=== PATIENT | female | born 1955 | race Caucasian/White ===

== ENCOUNTER 2018-01-20 13:17 | Observation (INO) | payer MEDICARE ==
[~2018-01-20] VITALS: Ht 162.6 cm; Wt 70.0 kg
[2018-01-20 13:27] VITALS: BP 169/74; PULSE 81; RESP 16; TEMP 97.3; O2SAT 98
[2018-01-20] MEDS ORDERED: SODIUM CHLORIDE 0.9% FLUSH 10 ML FLUSH IVF PRN (13:45)
--- NOTE | 2018-01-20 13:50 | PD ---
HPI Chief Complaint: Chest Pain Time Seen by Provider: 13:41 Travel History International Travel<30 days: No Contact w/Intl Traveler<30days: No Traveled to known affect area: No History of Present Illness HPI 62-year-old female patient with history of multiple sclerosis, hypertension, previous MO, presents to the ER today for 5 out of 10 substernal chest discomfort which she states feels like a pressure. She states it does not radiate anywhere. She denies any shortness of breath or nausea. She states that it feels similar to last time she had cardiac related chest pain. She had taken her own nitroglycerin and states that he felt a little bit better. She denies any cough, fevers, or any other symptoms. Modifying Factors: None Associated Signs & Symptoms: Chest discomfort Risk Factors: Previous MO PFSH Past Medical History Cardiovascular Problems: Yes Social History Tobacco Use: No Allergies-Medications (Allergen,Severity, Reaction): Coded Allergies: latex (Unverified Allergy, Unknown, 05/30/17) Reported Meds & Prescriptions Reported Meds & Active Scripts Active Review of Systems Except as stated in HPI: all other systems reviewed are Neg Physical Exam Narrative GENERAL: Well-developed elderly female patient currently in mild distress. Awake and oriented 3. SKIN: Focused skin assessment warm/dry. HEAD: Atraumatic. Normocephalic. EYES: Pupils equal and round. No scleral icterus. No injection or drainage. ENT: No nasal bleeding or discharge. Mucous membranes pink and moist. NECK: Trachea midline. No JVD. Supple. CARDIOVASCULAR: Regular rate and rhythm. No murmur appreciated. Pulses are present and equal bilaterally. RESPIRATORY: No accessory muscle use. Clear to auscultation. Breath sounds equal bilaterally. GASTROINTESTINAL: Abdomen soft, non-tender, nondistended. Hepatic and splenic margins not palpable. MUSCULOSKELETAL: No obvious deformities. No clubbing. No cyanosis. No edema. NEUROLOGICAL: Awake and alert. No obvious cranial nerve deficits. Motor grossly within normal limits. Normal speech. PSYCHIATRIC: Appropriate mood and affect; insight and judgment normal. Data Data Last Documented VS Vital Signs Date Time Temp Pulse Resp B/P (MAP) Pulse Ox O2 Delivery O2 Flow Rate FiO2 01/20/18 16:30 76 16 133/70 (91) 96 Room Air 01/20/18 14:00 2.00 01/20/18 13:27 97.3 Orders Orders Electrocardiogram (01/20/18 13:41) Ckmb (Isoenzyme) Profile (01/20/18 13:41) Complete Blood Count With Diff (01/20/18 13:41) Comprehensive Metabolic Panel (01/20/18 13:41) Magnesium (Mg) (01/20/18 13:41) Prothrombin Time / Inr (Pt) (01/20/18 13:41) Act Partial Throm Time (Ptt) (01/20/18 13:41) Troponin I (01/20/18 13:41) Ecg Monitoring (01/20/18 13:41) Bilateral Bp Monitoring (01/20/18 13:41) Iv Access Insert/Monitor (01/20/18 13:41) Oximetry (01/20/18 13:41) Oxygen Administration (01/20/18 13:41) Sodium Chloride 0.9% Flush (Ns Flush) (01/20/18 13:45) Chest, Pa & Lat (01/20/18 13:41) Aspirin (Aspirin) (01/20/18 14:00) Nitroglycerin 2% Oint (Nitroglycerin 2% (01/20/18 14:00) Ct Thorax/ Chest W Iv Contrast (01/20/18 15:31) Iohexol 350 Inj (Omnipaque 350 Inj) (01/20/18 18:01) Admit Order (Ed Use Only) (01/20/18 18:41) Activity Bed Rest With Brp (01/20/18 18:41) Vital Signs (Adult) Q4H (01/20/18 18:41) Cardiac Rhythm .As Directed (01/20/18 18:41) Notify Dr: Other .PRN (01/20/18 18:41) Notify Dr. Parameters (01/20/18 18:41) Labs Laboratory Tests Test 01/20/18 13:35 01/20/18 13:45 Blood Urea Nitrogen 14 MG/DL Creatinine 0.72 MG/DL Random Glucose 90 MG/DL Total Protein 7.2 GM/DL Albumin 3.5 GM/DL Calcium Level 8.8 MG/DL Magnesium Level 2.1 MG/DL Alkaline Phosphatase 119 U/L Aspartate Amino Transf (AST/SGOT) 19 U/L Alanine Aminotransferase (ALT/SGPT) 16 U/L Total Bilirubin 0.4 MG/DL Sodium Level 139 MEQ/L Potassium Level 3.2 MEQ/L Chloride Level 103 MEQ/L Carbon Dioxide Level 27.0 MEQ/L Anion Gap 9 MEQ/L Estimat Glomerular Filtration Rate 82 ML/MIN Total Creatine Kinase 80 U/L Troponin I LESS THAN 0.02 NG/ML White Blood Count 6.2 TH/MM3 Red Blood Count 3.95 MIL/MM3 Hemoglobin 12.1 GM/DL Hematocrit 36.1 % Mean Corpuscular Volume 91.4 FL Mean Corpuscular Hemoglobin 30.7 PG Mean Corpuscular Hemoglobin Concent 33.6 % Red Cell Distribution Width 13.7 % Platelet Count 311 TH/MM3 Mean Platelet Volume 7.7 FL Neutrophils (%) (Auto) 47.5 % Lymphocytes (%) (Auto) 24.6 % Monocytes (%) (Auto) 11.9 % Eosinophils (%) (Auto) 14.9 % Basophils (%) (Auto) 1.1 % Neutrophils # (Auto) 3.0 TH/MM3 Lymphocytes # (Auto) 1.5 TH/MM3 Monocytes # (Auto) 0.7 TH/MM3 Eosinophils # (Auto) 0.9 TH/MM3 Basophils # (Auto) 0.1 TH/MM3 CBC Comment DIFF FINAL Differential Comment Prothrombin Time 10.7 SEC Prothromb Time International Ratio 1.1 RATIO Activated Partial Thromboplast Time 25.5 SEC MDM Medical Decision Making Medical Screen Exam Complete: Yes Emergency Medical Condition: Yes Medical Record Reviewed: Yes Interpretation(s) EKG shows NSR, no ST elevation or depression, and no arrhythmias. No significant T-wave inversions. Laboratory Tests Test 01/20/18 13:35 01/20/18 13:45 Alkaline Phosphatase 119 U/L (45-117) Potassium Level 3.2 MEQ/L (3.5-5.1) Estimat Glomerular Filtration Rate 82 ML/MIN (>89) Troponin I LESS THAN 0.02 NG/ML Red Blood Count 3.95 MIL/MM3 (4.00-5.30) Monocytes (%) (Auto) 11.9 % (0.0-8.0) Eosinophils (%) (Auto) 14.9 % (0.0-4.0) Eosinophils # (Auto) 0.9 TH/MM3 (0-0.4) Last 24 hours Impressions Chest X-Ray 01/20/18 1341 Signed Impressions: Service Date/Time: Saturday, January 20, 2018 14:11 - CONCLUSION: Right middle lobe consolidating airspace disease versus mass density. Bora Cohen MD Differential Diagnosis Chest pains: ACS versus unstable angina versus dysrhythmias versus anxiety attack versus muscular skeletal pain Narrative Course EKG did not show any signs of acute ST changes. Chest x-ray initially showed right middle lobe concerning for possible mass versus consolidation, CAT scan ordered for further evaluation, shows that his fat pad, no underlying consolidation. Cardiac enzymes are negative. Aspirin nitroglycerin was given in the ER. At this point, my plan would be to admit her for further evaluation of her chest pains. Diagnosis Primary Impression: Chest pain Admitting Information Admitting Physician Requests: Admit Harry Massey MD Jan 20, 2018 13:50
[2018-01-20 14:00] VITALS: BP 174/83; PULSE 76; RESP 16; O2SAT 96
[2018-01-20] MEDS ORDERED: NITROGLYCERIN 2% OINT 1 GM PACKET TOPICAL ONE (14:00)
[2018-01-20] MEDS ORDERED: ASPIRIN 325 MG TAB PO ONE (14:00)
[2018-01-20 14:04] LABS: BASOPHIL # 0.1 TH/MM3 (0-0.2); BASOPHIL % 1.1 % (0.0-2.0); EOSINOPHIL # 0.9 TH/MM3 (0-0.4); EOSINOPHIL % 14.9 % (0.0-4.0); HEMATOCRIT 36.1 % (35.0-46.0); HEMOGLOBIN 12.1 GM/DL (11.6-15.3); LYMPH % 24.6 % (9.0-44.0); LYMPHOCYTE # 1.5 TH/MM3 (1.0-4.8); MEAN CELL VOLUME 91.4 FL (80.0-100.0); MEAN CORPUSCULAR HEMOGLOBIN 30.7 PG (27.0-34.0); MEAN CORPUSCULAR HGB CONC 33.6 % (32.0-36.0); MEAN PLATELET VOLUME 7.7 FL (7.0-11.0); MONO % 11.9 % (0.0-8.0); MONOCYTE # 0.7 TH/MM3 (0-0.9); NEUT % 47.5 % (16.0-70.0); PLATELET COUNT 311 TH/MM3 (150-450); RED BLOOD COUNT 3.95 MIL/MM3 (4.00-5.30); RED CELL DISTRIBUTION WIDTH 13.7 % (11.6-17.2); WHITE BLOOD COUNT 6.2 TH/MM3 (4.0-11.0)
[2018-01-20 14:11] LABS: INTERNATIONAL NORMALIZED RATIO 1.1 RATIO; PROTHROMBIN TIME - PATIENT 10.7 SEC (9.8-11.6)
[2018-01-20 14:26] LABS: ALBUMIN 3.5 GM/DL (3.4-5.0); ALT (GPT) 16 U/L (10-53); AST (GOT) 19 U/L (15-37); BLOOD UREA NITROGEN 14 MG/DL (7-18); CALCIUM 8.8 MG/DL (8.5-10.1); CHLORIDE 103 MEQ/L (98-107); CREATININE 0.72 MG/DL (0.50-1.00); GLOMERULAR FILTRATION RATE 82 ML/MIN (>89); GLUCOSE,RANDOM 90 MG/DL (74-106); MAGNESIUM 2.1 MG/DL (1.5-2.5); SODIUM (NA) 139 MEQ/L (136-145)
[2018-01-20 14:31] VITALS: BP_SYST 174; BP_SYST 175; BP_DIAS 83; BP_DIAS 84; PULSE 84; RESP 16; O2SAT 97
[2018-01-20 14:31] LABS: ALKALINE PHOSPHATASE 119 U/L (45-117); TOTAL BILIRUBIN ADULT 0.4 MG/DL (0.2-1.0); TOTAL PROTEIN 7.2 GM/DL (6.4-8.2); TROPONIN I LESS THAN 0.02 NG/ML (0.02-0.05)
[2018-01-20 15:00] VITALS: BP 175/84; PULSE 84; RESP 16; O2SAT 96
--- NOTE | 2018-01-20 15:25 | RADRPT ---
EXAM DATE/TIME: 01/20/2018 14:11 [facility] COMPARISON: No previous studies available for comparison. INDICATIONS : Chest pain. MEDICAL HISTORY : None. SURGICAL HISTORY : None. ENCOUNTER: Initial ACUITY: 1 day PAIN SCORE: 3/10 LOCATION: Bilateral chest FINDINGS: Consolidating airspace disease versus mass densities identified in the right middle lobe. Left lung is clear Heart is normal in size. Osseous structures are intact. CONCLUSION: Right middle lobe consolidating airspace disease versus mass density. Bora Cohen MD on January 20, 2018 at 15:22 Board Certified Radiologist. This report was verified electronically.
[2018-01-20 16:30] VITALS: BP 133/70; PULSE 76; RESP 16; O2SAT 96
[2018-01-20] MEDS ORDERED: IOHEXOL 350 MG/ML 10 ML VIAL (for RAD DIAG) IVCONTRAST ONE (18:01)
--- NOTE | 2018-01-20 18:24 | RADRPT ---
EXAM DATE/TIME: 01/20/2018 17:55 [facility] COMPARISON: CHEST PA & LAT, January 20, 2018, 14:11. INDICATIONS : Abnormal chest xray; evaluate for mass right side. IV CONTRAST: 100 cc Omnipaque 350 (iohexol) IV RADIATION DOSE: 5.75 CTDIvol (mGy) MEDICAL HISTORY : Cardiovascular disease. Hypertension. Multiple sclerosis.Stroke. SURGICAL HISTORY : Cholecystectomy. ENCOUNTER: Initial ACUITY: 1 day PAIN SCALE: 4/10 LOCATION: Right chest TECHNIQUE: Volumetric scanning of the chest was performed. Using automated exposure control and adjustment of t he mA and/or kV according to patient size, radiation dose was kept as low as reasonably achievable to obtain optimal diagnostic quality images. DICOM format image data is available electronically for review and comparison. Follow-up recommendations for detected pulmonary nodules are based at a minimum on nodule size and pa tient risk factors according to Fleischner Society Guidelines. FINDINGS: LUNGS: There are 2 adjacent 3 mm nodule seen in the right middle lobe. PLEURA: There is no pleural thickening or pleural effusion. MEDIASTINUM: There is a prominent right epicardial fat pad accounting for the density seen on the recent chest x-r ay. This is a normal finding. AXILLAE: Within normal limits. No lymphadenopathy. SKELETAL: Within normal limits for patient age. MISCELLANEOUS: There is a prominent levocurvature of the thoracolumbar region. There is a spinal catheter in place w ith tip directed to the T11 level. Old right rib fractures are seen. CONCLUSION: 1. Large right epicardial fat pad accounting for the density on the chest x-ray. 2. 2 small adjacent 3 mm nodules in the right middle lobe. The recommendations for low risk patients, no follow-up needed. In high risk patients, follow-up CT at 12 months; if unchanged, no further fol low-up. Karthikeyan Shook MD on January 20, 2018 at 18:16 Board Certified Radiologist. This report was verified electronically.
[2018-01-20] MEDS ORDERED: SODIUM CHLORIDE 0.9% FLUSH 10 ML FLUSH IV FLUSH PRN (18:45)
[2018-01-20] MEDS ORDERED: POTASSIUM CHLORIDE 25 MEQ EFFERVESCENT TAB PO ONE (18:45)
[2018-01-20] MEDS ORDERED: INFUSION (18:51)
[2018-01-20] MEDS ORDERED: OMEP20TA93 PO (18:51)
[2018-01-20] MEDS ORDERED: FOLI800T PO (18:51)
[2018-01-20] MEDS ORDERED: SERT25TA83 PO (18:51)
[2018-01-20] MEDS ORDERED: PRED5TAB PO (18:51)
[2018-01-20] MEDS ORDERED: TOPI200T7 PO (18:51)
[2018-01-20] MEDS ORDERED: LISI10TA3 PO (18:51)
[2018-01-20] MEDS ORDERED: AK-T0.3S EACH EYE (18:51)
[2018-01-20] MEDS ORDERED: CARB200T (18:51)
[2018-01-20] MEDS ORDERED: METH0.35 SQ (18:51)
[2018-01-20] MEDS: SODIUM CHLORIDE 0.9% FLUSH 10 ML FLUSH IV FLUSH SCH (19:38)
[2018-01-20 20:43] LABS: TROPONIN I LESS THAN 0.02 NG/ML (0.02-0.05)
[2018-01-20 23:02] LABS: TROPONIN I LESS THAN 0.02 NG/ML (0.02-0.05)
[2018-01-20 23:47] VITALS: BP 116/59; PULSE 64; RESP 16; TEMP 96.3; O2SAT 95
[2018-01-21] MEDS: NITROGLYCERIN 2% OINT 1 GM PACKET TOP SCH ×3 (00:54→12:00)
[2018-01-21 04:00] VITALS: BP 104/57; PULSE 65; RESP 16; TEMP 97; O2SAT 95
[2018-01-21] MEDS ORDERED: ONDANSETRON HCL 4 MG/2 ML VIAL IV PUSH PRN (07:45)
[2018-01-21] MEDS ORDERED: ACETAMINOPHEN 500 MG CPLT PO PRN (07:45)
[2018-01-21] MEDS ORDERED: NITROGLYCERIN 0.4 MG SL 25 TABS/BTL SL PRN (07:45)
[2018-01-21 08:00] VITALS: BP 105/57; PULSE 59; RESP 16; TEMP 97.3; O2SAT 94
[2018-01-21 08:21] VITALS: PULSE 54
[2018-01-21] MEDS ORDERED: ASPIRIN 325 MG TAB PO SCH ×2 (09:00)
--- NOTE | 2018-01-21 09:26 | HHI.HP ---
[facility] Primary Care Physician Omid Samano MD Chief Complaint Chest pain History of Present Illness 62-year-old female with history of MS, hypertension, GERD, rheumatoid arthritis , and ND presents to the emergency room for further evaluation of chest pain. Onset yesterday 12 PM while working in garden. Location substernal area. Characterized as a rock sitting on chest with accompanying symptoms of acid reflux, headache, nausea, dyspnea, and a sour taste in her mouth. Denying vomiting or diaphoresis. No radiation. No known precipitating or relieving factors. Duration 2-3 hours. Continue to work in garden, followed by taking a shower she had plans to meet her daughters for lunch. Took Prilosec on way to restaurant. While at restaurant discomfort continued therefore she and her daughters left restaurant prior to ordering and came to ER. Endorses similar pain in the past, although not as severe, in August 2017. Reports being on a cruise ship at the time. Apparently once at [facility], flown to [place]. Told by cruise personnel, air flight medical team, and physicians in [place] she had a heart attack. Denies having undergone cardiac catheterization while in [place], remembers being told she had "broken heart syndrome" and was in the ICU for a few days. Sounds as though she signed herself out of [facility] at some point, following up with her cyanide pot hardener in [facility]. Endorses cardiac catheterization approximately 3 days later, in [place], [place]. Reported to be normal "but extremely shannon." Review of Systems General: No fatigue,weakness, fever, chills, recent illness, or change in appetite. Has been in her general state of health. Endorses "aches and pains" due to multiple medical problems, although stable and unchanged. HEENT: Headache has resolved. No vision changes, no nasal congestion or drainage, no dysphasia CV: As stated above. No current chest pain or pressure. RESP: SOB resolved, no cough, wheeze, or hemoptysis. GI: Nausea has resolved. No vomiting, bowel changes, diarrhea, constipation, pain, distention, melena, or blood in the stool. History of GERD, normally does not suffer from acid reflux symptoms, taking omeprazole daily. : No dysuria, urgency, frequency EXT: No lower leg edema, no paraesthesias. MS: No discomfort, injury, trauma, or change in ROM NEURO: No change in memory, difficulty with balance, LOC, motor/sensory deficits PSYCH: No anxiety, depression. Endorses situational stress. SKIN: No rashes, no concerning lesions Past Family Social History Allergies: Coded Allergies: latex (Unverified Allergy, Unknown, 05/30/17) Past Medical History MS, hypertension, GERD, rheumatoid arthritis, decreased ejection fraction ( reporting last ECHO 45%) Reported Medications Reported Meds & Active Scripts Active Reported-(please note patient unsure of daily medications and reports her personal medication list is not updated on her phone) Topiramate 200 Mg Tab 100 Mg PO BID Tobramycin Opth Drops 0.3 % Soln 1 Drop EACH EYE Q4H Sertraline (Sertraline HCl) 25 Mg Tab 25 Mg PO DAILY Prednisone 5 Mg Tab 5 Mg PO BID Omeprazole 20 Mg Tab 20 Mg PO DAILY Rasuvo (Methotrexate (Antirheumatic)) 20 Mg/0.4 Ml Inj Lisinopril 10 Mg Tab 10 Mg PO DAILY [infusion] Folic Acid 0.8 Mg Tab 1 Mg PO DAILY Carbamazepine 200 Mg Tab 200 Mg BID Active Ordered Medications Current Medications Medications (Trade) Dose Ordered Sig/Yanet Route Start Time Stop Time Status Last Admin (NS Flush) 2 ml UNSCH PRN IV FLUSH 01/20/18 18:45 (NS Flush) 2 ml BID IV FLUSH 01/20/18 21:00 01/20/18 19:38 (Nitroglycerin 2% Oint) 1 inch Q6HR TOP 01/21/18 00:00 01/21/18 06:07 (Tylenol) 500 mg Q4H PRN PO 01/21/18 07:45 (Zofran Inj) 4 mg Q6H PRN IV PUSH 01/21/18 07:45 (Nitrostat Sl) 0.4 mg Q5M PRN SL 01/21/18 07:45 (Aspirin) 325 mg DAILY PO 01/21/18 09:00 Family History Noncontributory for early onset cardiovascular disease. Social History Known hypertension, questionable coronary artery disease. No known hyperlipidemia or diabetes. Lifelong non-smoker. Rare alcohol use. . Lives with her daughter. Disabled. Past cardiac testing Cardiac catheterization August [address] Anderson. Reported to be "normal" without requiring any intervention. Since August 2017 she has completed at least 2 echocardiogram. Reports first echo EF 30% and repeat echo EF 45%. Unclear if she had ND verses elevated troponin's while in [facility]. Physical Exam Vital Signs Vital Signs Date Time Temp Pulse Resp B/P (MAP) Pulse Ox O2 Delivery O2 Flow Rate FiO2 01/21/18 08:00 94 01/21/18 08:00 97.3 59 16 105/57 (73) 94 01/21/18 04:00 97.0 65 16 104/57 (73) 95 01/20/18 23:47 96.3 64 16 116/59 (78) 95 01/20/18 16:30 76 16 133/70 (91) 96 Room Air 01/20/18 15:00 84 16 175/84 (114) 96 Room Air 01/20/18 14:31 84 16 175/84 (114) 97 Room Air 174/83 (113) 01/20/18 14:00 99 Nasal Cannula 2.00 01/20/18 14:00 76 16 174/83 (113) 96 Room Air 01/20/18 14:00 78 18 98 01/20/18 13:27 97.3 81 16 169/74 (105) 98 Physical Exam GENERAL: Alert WN, WD, NAD, pleasant, female HEAD: NC, AT EYES: Sclera clear, conjunctiva without injection, pupils equal and round ENT: Mucous membranes pink and moist NECK: Supple, no masses, trachea midline CV: RRR, without murmur, rub, gallop, no JVD, S1-S2 no S3-S4. No carotid or femoral bruits. RESP: Clear lungs throughout bilateral, no crackles, wheeze, rhonchi, symmetrical chest rise, nonlabored, able to speak in full sentences ABD: Soft, NT, ND, no masses, positive bowel tones EXT: Pulses +2x44, no dependent edema, bilateral extremities varicosities MS: Normal tone -4 extremities, no obvious deformities, full range of motion NEURO: CN II through CN XII grossly intact, motor strength 5/5 PSYCH: A+O -3, pleasant affect, appropriate speech, mood, insight and judgment SKIN: Normal turgor, normal texture, no lesions, no rashes, brisk cap refill, even hair distribution Laboratory Laboratory Tests Test 01/20/18 13:35 01/20/18 13:45 01/20/18 19:36 01/20/18 22:10 Blood Urea Nitrogen 14 Creatinine 0.72 Random Glucose 90 Total Protein 7.2 Albumin 3.5 Calcium Level 8.8 Magnesium Level 2.1 Alkaline Phosphatase 119 Aspartate Amino Transf (AST/SGOT) 19 Alanine Aminotransferase (ALT/SGPT) 16 Total Bilirubin 0.4 Sodium Level 139 Potassium Level 3.2 Chloride Level 103 Carbon Dioxide Level 27.0 Anion Gap 9 Estimat Glomerular Filtration Rate 82 Total Creatine Kinase 80 65 59 Troponin I LESS THAN 0.02 LESS THAN 0.02 LESS THAN 0.02 White Blood Count 6.2 Red Blood Count 3.95 Hemoglobin 12.1 Hematocrit 36.1 Mean Corpuscular Volume 91.4 Mean Corpuscular Hemoglobin 30.7 Mean Corpuscular Hemoglobin Concent 33.6 Red Cell Distribution Width 13.7 Platelet Count 311 Mean Platelet Volume 7.7 Neutrophils (%) (Auto) 47.5 Lymphocytes (%) (Auto) 24.6 Monocytes (%) (Auto) 11.9 Eosinophils (%) (Auto) 14.9 Basophils (%) (Auto) 1.1 Neutrophils # (Auto) 3.0 Lymphocytes # (Auto) 1.5 Monocytes # (Auto) 0.7 Eosinophils # (Auto) 0.9 Basophils # (Auto) 0.1 CBC Comment DIFF FINAL Differential Comment Prothrombin Time 10.7 Prothromb Time International Ratio 1.1 Activated Partial Thromboplast Time 25.5 Result Diagram: 01/20/18 1345 01/20/18 1335 Imaging Last [address] 01/20/18 1531 Signed Impressions: Service Date/Time: Saturday, January 20, 2018 17:55 - CONCLUSION: 1. Large right epicardial fat pad accounting for the density on the chest x-ray. 2. 2 small adjacent 3 mm nodules in the right middle lobe. The recommendations for low risk patients, no follow-up needed. In high risk patients, follow-up CT at 12 months; if unchanged, no further follow-up. Karthikeyan Shook MD Chest X-Ray 01/20/18 1341 Signed Impressions: Service Date/Time: Saturday, January 20, 2018 14:11 - CONCLUSION: Right middle lobe consolidating airspace disease versus mass density. Bora Cohen MD Course EKG Normal sinus rhythm, no ST changes Caprini VTE Risk Assessment Caprini VTE Risk Assessment: Mod/High Risk (score >= 2) Caprini Risk Assessment Model Point Value = 1 Point Value = 2 Point Value = 3 Point Value = 5 Age 41-60 Minor surgery BMI > 25 kg/m2 Swollen legs Varicose veins or History of unexplained or recurrent spontaneous Oral contraceptives or hormone replacement Sepsis (< 1 month) Serious lung disease, including pneumonia (< 1 month) Abnormal pulmonary function Acute myocardial infarction Congestive heart failure (< 1 month) History of inflammatory bowel disease Medical patient at bed rest Age 61-74 Arthroscopic surgery Major open surgery (> 45 min) Laparoscopic surgery (> 45 min) Malignancy Confined to bed (> 72 hours) Immobilizing plaster cast Central venous access Age >= 75 History of VTE Family history of VTE Factor V Leiden Prothrombin [id number] Lupus anticoagulant Anticardiolipin antibodies Elevated serum homocysteine Heparin-induced thrombocytopenia Other congenital or acquired thrombophilia Stroke (< 1 month) Elective arthroplasty Hip, pelvis, or leg fracture Acute spinal cord injury (< 1 month) Prophylaxis Regimen Total Risk Factor Score Risk Level Prophylaxis Regimen 0-1 Low Early ambulation 2 Moderate Order ONE of the following: *Sequential Compression Device (SCD) *Heparin 5000 units SQ BID 3-4 Higher Order ONE of the following medications: *Heparin 5000 units SQ TID *Enoxaparin/Lovenox 40 mg SQ daily (WT < 150 kg, CrCl > 30 mL/min) *Enoxaparin/Lovenox 30 mg SQ daily (WT < 150 kg, CrCl > 10-29 mL/min) *Enoxaparin/Lovenox 30 mg SQ BID (WT < 150 kg, CrCl > 30 mL/min) AND/OR *Sequential Compression Device (SCD) 5 or more Highest Order ONE of the following medications: *Heparin 5000 units SQ TID (Preferred with Epidurals) *Enoxaparin/Lovenox 40 mg SQ daily (WT < 150 kg, CrCl > 30 mL/min) *Enoxaparin/Lovenox 30 mg SQ daily (WT < 150 kg, CrCl > 10-29 mL/min) *Enoxaparin/Lovenox 30 mg SQ BID (WT < 150 kg, CrCl > 30 mL/min) AND *Sequential Compression Device (SCD) Assessment and Plan Assessment and Plan #1 Chest pain-admitted to chest pain center. Ruled out 3 sets of temperature overnight. Seen and evaluated by Dr. Yvan Dejesus. Been determined no further cardiac testing is required due to recent cardiac catheterization reported to be normal. Instructed to call her cyanide pot hardener tomorrow morning for follow up this week. Encouraged her to obtain recent cardiac catheterization for her records. Discharged home without any further cardiac testing. Patient and daughter is agreeable to plan of care. Ebony Puri Jan 21, 2018 09:26
[2018-01-21] MEDS ORDERED: FOLIC ACID 1 MG TAB PO SCH (10:00)
[2018-01-21] MEDS ORDERED: LISINOPRIL 10 MG TAB PO SCH (10:00)
[2018-01-21] MEDS ORDERED: PILL SPLITTER OTHER PRN (10:15)
[2018-01-21] MEDS ORDERED: TOPIRAMATE 100 MG TAB PO SCH (11:00)
[2018-01-21] MEDS ORDERED: SERTRALINE HCL 50 MG TAB PO SCH (11:00)
[2018-01-21] MEDS ORDERED: PANTOPRAZOLE SOD 20 MG DELAYED RELEASE TAB PO SCH (11:00)
[2018-01-21] MEDS: SODIUM CHLORIDE 0.9% FLUSH 10 ML FLUSH IV FLUSH SCH (11:12)
[2018-01-21] MEDS ORDERED: FOLI800T PO (11:45)
[2018-01-21] MEDS ORDERED: LISI-519 PO (11:46)
[2018-01-21] MEDS ORDERED: PRED1 PO (11:47)
[2018-01-21] MEDS ORDERED: ASPI-516 CHEW (11:48)
[2018-01-21 12:00] VITALS: BP 103/58; PULSE 58; RESP 16; TEMP 97.4; O2SAT 95
--- NOTE | 2018-01-21 12:25 | HHI.DCPOC ---
Discharge Care Plan Diagnosis: (1) Atypical chest pain Goals to Promote Your Health * To prevent worsening of your condition and complications * To maintain your health at the optimal level Directions to Meet Your Goals Take your medications as prescribed Follow your dietary instruction Follow activity as directed Keep your appointments as scheduled Take your immunizations and boosters as scheduled If your symptoms worsen call your PCP, if no PCP go to Urgent Care Center or Emergency Room Smoking is Dangerous to Your Health. Avoid second hand smoke Call the 24-hour hour crisis hotline for domestic abuse at Ebony Puri Jan 21, 2018 12:25
[2018-01-21] MEDS ORDERED: METO25TA3 PO (12:54)
[2018-01-21] MEDS ORDERED: BACL10TA PO (12:55)
[2018-01-21] MEDS ORDERED: FLUN25I EACH NARE (12:56)
--- NOTE | 2018-01-21 16:44 | EKG ---
Date Performed: 01/20/2018 Time Performed: 23:52:33 PTAGE: 62 years EKG: Sinus rhythm LOW QRS VOLTAGE IN PRECORDIAL LEADS BORDERLINE ECG PREVIOUS TRACING : 01/20/2018 19.30 Since previous tracing, no significant change noted DOCTOR: Yvan Dejesus Interpretating Date/Time 01/21/2018 16:43:40
--- NOTE | 2018-01-21 16:47 | EKG ---
Date Performed: 01/20/2018 Time Performed: 19:30:53 PTAGE: 62 years EKG: Sinus rhythm NORMAL ECG PREVIOUS TRACING : 01/20/2018 13.41 Since previous tracing, no significant change noted DOCTOR: Yvan Dejesus Interpretating Date/Time 01/21/2018 16:46:27
--- NOTE | 2018-01-21 16:47 | EKG ---
Date Performed: 01/20/2018 Time Performed: 13:41:31 PTAGE: 62 years EKG: Sinus rhythm NORMAL ECG NO PREVIOUS TRACING DOCTOR: Yvan Dejesus Interpretating Date/Time 01/21/2018 16:46:34
== END 2018-01-21 16:58 | disposition home or self-care (01) ==
LOC: NEPC 13:17 → NEDA 18:43 → NEPGCP 19:54
DX: R07.89 Other chest pain (principal); I10 Essential (primary) hypertension; I25.2 Old myocardial infarction; G35 Multiple sclerosis; M06.9 Rheumatoid arthritis, unspecified; K21.9 Gastro-esophageal reflux disease without esophagitis
CPT/HCPCS: 71046; 71260; 80053; 82550; 83735; 84484; 85025; 85610; 85730; 93005; 99285; G0378; Q9967

== ENCOUNTER 2018-11-30 19:35 | Inpatient (IN) ==
[2018-11-30] MEDS ORDERED: Morphine Inj 4 MG, Morphine Inj 2 MG IV.PUSH ONE ×2 (20:14)
[2018-11-30] MEDS ORDERED: Sodium Chlor 0.9% Inj 500 ML IV.SIG SCH (21:00)
[2018-11-30 21:03] LABS: Baso # (Auto) 0.1 th/mm3 (0.0-0.2); Baso % (Auto) 1.1 % (0.0-2.0); Eos # (Auto) 0.2 th/mm3 (0.0-0.4); Hematocrit 36.2 % (35.0-46.0); Hemoglobin 11.9 gm/dL (11.6-15.3); Lymph # (Auto) 0.9 th/mm3 (1.0-4.8); Lymph % (Auto) 12.5 % (9.0-44.0); Mean Corpuscular HGB Conc 32.7 % (32.0-36.0); Mean Corpuscular Hemoglobin 30.5 pg (27.0-34.0); Mean Corpuscular Volume 93.3 fL (80.0-100.0); Mean Platelet Volume 7.8 fL (7.0-11.0); Mono % (Auto) 13.1 % (0.0-8.0); Neut # (Auto) 5.1 th/mm3 (1.8-7.7); Neut % (Auto) 70.3 % (16.0-70.0); Platelet Count 269 th/mm3 (150-450); Red Blood Count 3.88 mil/mm3 (4.00-5.30); Red Cell Distribution Width 14.8 % (11.6-17.2); White Blood Count 7.3 th/mm3 (4.0-11.0)
--- NOTE | 2018-11-30 21:08 | XR ---
EXAM DATE: 11/30/2018 9:04 PM EST AGE/SEX: 62 years / Female INDICATIONS: Shortness of breath. CLINICAL DATA: This is the patient's initial encounter. Patient reports that signs and symptoms have been present for 1 day and indicates a pain score of 0/10. MEDICAL/SURGICAL HISTORY: None. None. COMPARISON: [facility], CHEST PA & LAT, 01/20/2018. [facility], CT THORAX W CONTRAST, 01/20/2018. . FINDINGS: The heart size is normal. There is vague density seen at the medial right base likely related to a fa t pad. This was present previously. The lungs are clear. No effusion is seen. There does appear to be tubing seen over the right upper abdomen. There are small area of calcification seen adjacent to the right proximal humerus. CONCLUSION: No acute cardiopulmonary process. Electronically signed by: Karthikeyan Shook MD Board Certified Radiologist 11/30/2018 9:06 PM EST
--- NOTE | 2018-11-30 21:09 | CT ---
EXAM DATE: 11/30/2018 9:05 PM EST AGE/SEX: 62 years / Female INDICATIONS: Trauma; fall. Dizziness. CLINICAL DATA: This is the patient's initial encounter. Patient reports that signs and symptoms have been present for 1 day and indicates a pain score of 3/10. MEDICAL/SURGICAL HISTORY: None. None. RADIATION DOSE: 56.70 CTDI (mGy) ;Tabletop exam COMPARISON: [facility], CT BRAIN W/O CONTRAST, 07/13/2018. . TECHNIQUE: CT of the head without contrast. Using automated exposure control and adjustment of the mA and/or kV according to patient size, radiation dose was kept as low as reasonably achievable to ob tain optimal diagnostic quality images. DICOM format image data is available electronically for revi ew and comparison. FINDINGS: Cerebrum: The ventricles are normal for age. No evidence of midline shift, mass lesion, hemorrhage or acute infarction. No extraaxial fluid collections are seen. Posterior Fossa: The cerebellum and brainstem are intact. The 4th ventricle is midline. The cerebe llopontine angle is unremarkable. Extracranial: The visualized portion of the orbits is intact. Skull: The calvaria is intact. No evidence of skull fracture. CONCLUSION: No intracranial abnormality is seen. . . Electronically signed by: Karthikeyan Shook MD Board Certified Radiologist 11/30/2018 9:07 PM EST
--- NOTE | 2018-11-30 21:11 | ED ---
HPI General Chief Complaint: Extremity Injury, Lower Stated Complaint: Right Hip/femmer Fracture Time Seen by Provider: 11/30/18 19:38 Source: patient Mode of arrival: EMS Limitations: no limitations History of Present Illness HPI Narrative: 62-year-old female came to the emergency room brought in by EMS for a right hip injury secondary to a fall this morning and an outpatient x-ray showing intertrochanteric fracture. Patient has history of MS and wheelchair- bound. She says that she has history of sleepwalking and frequent falls secondary to that. She had a femur fracture in July 2018 that required drake placement after an ORIF by Dr. Bryan. That was secondary to a fall as well. Patient had something similar this morning where she fell and could not get up. Since then she has been having right hip pain. An outpatient x-ray of the hip was obtained that showed intertrochanteric fracture. Patient was asked to go to the emergency room. She lives with her daughter in a house. Currently she is awake and answering questions appropriately. She is asking for pain medication. Patient also has a baclofen and morphine pump for chronic pain secondary to her MS. Vital signs are stable. Patient denies hitting her head when she fell or any LOC. Related Data Home Medications Medication Instructions Recorded Confirmed albuterol sulfate 2.5 mg INHALATION Q6H PRN 11/30/18 11/30/18 albuterol sulfate [Ventolin HFA] 2 puff INHALATION Q4-6H PRN 11/30/18 11/30/18 armodafinil [Nuvigil] 250 mg PO QAM 11/30/18 11/30/18 aspirin [Aspirin Childrens] 81 mg PO DAILY 11/30/18 11/30/18 atorvastatin 40 mg PO DAILY 11/30/18 11/30/18 biotin 5 mg PO DAILY 11/30/18 11/30/18 bumetanide 2 mg PO DAILY 11/30/18 11/30/18 fluticasone 2 spray INTRANASAL DAILY 11/30/18 11/30/18 folic acid 1 mg PO DAILY 11/30/18 11/30/18 leflunomide 20 mg PO DAILY 11/30/18 11/30/18 methotrexate sodium 50 mg/m2 IM WEEKLY 11/30/18 11/30/18 metoprolol tartrate 25 mg PO BID 11/30/18 11/30/18 nitroglycerin 0.4 mg SUBLINGUAL Q5-15M PRN 11/30/18 11/30/18 omeprazole 20 mg PO DAILY 11/30/18 11/30/18 prednisone 3 mg PO DAILY 11/30/18 11/30/18 sertraline 25 mg PO DAILY 11/30/18 11/30/18 topiramate 25 mg PO DAILY 11/30/18 11/30/18 trazodone 150 mg PO DAILY 11/30/18 11/30/18 Previous Rx's Medication Instructions Recorded oxycodone-acetaminophen [Percocet] 1 tab PO Q4-6H PRN 7 Days #42 tab 12/01/18 rivaroxaban [Xarelto] 10 mg PO DAILY #14 tab 12/01/18 baclofen 10 mg PO BID #10 tab 12/03/18 Allergies Allergy/AdvReac Type Severity Reaction Status Date / Time latex Allergy Unknown Rash Verified 11/30/18 23:45 Review of Systems ROS: all other systems reviewed are negative [facility] Social History Social History Substance History: No History of Abuse Second Hand Smoke Exposure: No Smoking Status: Former smoker How Often Do You Have a Drink Containing Alcohol: Never Recent Travel in [facility] within the Last 8 Weeks: No Recent Out of Country Travel within the Last 8 Weeks: No Immunization History Tetanus Immunization: <5 Years Exam Narrative Exam Narrative: GENERAL: Awake, alert, moderate distress SKIN: Focused skin assessment warm/dry. HEAD: Atraumatic. Normocephalic. EYES: Pupils equal and round. No scleral icterus. No injection or drainage. ENT: No nasal bleeding or discharge. Mucous membranes pink and moist. NECK: Trachea midline. No JVD. CARDIOVASCULAR: Regular rate and rhythm. No murmur appreciated. RESPIRATORY: No accessory muscle use. Clear to auscultation. Breath sounds equal bilaterally. GASTROINTESTINAL: Abdomen soft, non-tender, nondistended. Hepatic and splenic margins not palpable. MUSCULOSKELETAL: No obvious deformities. No clubbing. No cyanosis. No edema. Decreased range of motion at the right hip joint secondary to the pain. NEUROLOGICAL: Awake and alert. No obvious cranial nerve deficits. Motor grossly within normal limits. Normal speech. PSYCHIATRIC: Appropriate mood and affect; insight and judgment normal. Course Initial Documented Vital Signs Pulse Rate 76 11/30/18 19:54 Respiratory Rate 14 11/30/18 19:54 Blood Pressure 147/66 H 11/30/18 19:54 Pulse Oximetry 98 11/30/18 19:54 Last Documented Vital Signs Temperature 97.7 F 12/03/18 12:00 Pulse Rate 78 12/03/18 12:00 Respiratory Rate 17 12/03/18 12:00 Blood Pressure 140/63 12/03/18 12:00 Pulse Oximetry 95 12/03/18 12:00 Medical Decision Making MDM Narrative Medical decision making narrative: 9:10 PM patient will require admission for the fracture. I reviewed the x-rays that was sent in the CD. There is a CT of her head and hip pending. Awaiting for blood work after which patient will be admitted to the hospitalist. Medical Screen Exam Complete: Yes Emergency Medical Condition: Yes Lab Data Result diagrams: 12/03/18 05:48 12/01/18 04:54 Lab Results 11/30/18 11/30/18 11/30/18 Range/Units 20:30 20:45 20:45 WBC 7.3 (4.0-11.0) th/mm3 RBC 3.88 L (4.00-5.30) mil/mm3 Hgb 11.9 (11.6-15.3) gm/dL Hct 36.2 (35.0-46.0) % MCV 93.3 (80.0-100.0) fL MCH 30.5 (27.0-34.0) pg MCHC 32.7 (32.0-36.0) % RDW 14.8 (11.6-17.2) % Plt Count 269 (150-450) th/mm3 MPV 7.8 (7.0-11.0) fL Neut % (Auto) 70.3 H (16.0-70.0) % Lymph % (Auto) 12.5 (9.0-44.0) % [place] % (Auto) 13.1 H (0.0-8.0) % Eos % (Auto) 3.0 (0.0-4.0) % Baso % (Auto) 1.1 (0.0-2.0) % Neut # (Auto) 5.1 (1.8-7.7) th/mm3 Lymph # (Auto) 0.9 L (1.0-4.8) th/mm3 [place] # (Auto) 1.0 H (0.0-0.9) th/mm3 Eos # (Auto) 0.2 (0.0-0.4) th/mm3 Baso # (Auto) 0.1 (0.0-0.2) th/mm3 WBC Differential . Differential Comment Auto diff final PT 10.5 (9.8-11.6) sec INR 1.0 Ratio Sodium (136-145) meq/L Potassium (3.5-5.1) meq/L Chloride (98-107) meq/L Carbon Dioxide (21.0-32.0) meq/L Anion Gap (5-15) meq/L BUN (7-18) mg/dL Creatinine (0.50-1.00) mg/dL Estimated GFR (>89) mL/min Random Glucose (74-106) mg/dL Calcium (8.5-10.1) mg/dL Total Bilirubin (0.2-1.0) mg/dL AST (15-37) U/L ALT (10-53) U/L Alkaline Phosphatase (45-117) U/L Total Protein (6.4-8.2) g/dL Albumin (3.4-5.0) g/dL Urine Color Yellow (Yellw/Straw) Urine Clarity Clear (Clear) Urine pH 8.0 (5.0-8.5) Ur Specific [place] 1.011 (1.002-1.035) Urine Protein Negative (Neg-Trace) mg/dL Urine Glucose (UA) Negative (Negative) mg/dL Urine Ketones Negative (Negative) mg/dL Urine Occult Blood Negative (Negative) Urine Nitrate Negative (Negative) Urine Bilirubin Negative (Negative) Urine Urobilinogen Less than 2 (Less than 2) mg/dL Ur Leukocyte Esterase Negative (Negative) Urine WBC 1 (0-5) /hpf Hyaline Casts 1 (0-3) /lpf Micro UA Comment Cath-culture not ind Ur Microscopic Review Not Reportable Urine Culture Comments Cath-cult not ind Blood Type Blood Type Recheck Antibody Screen 11/30/18 12/01/18 12/01/18 Range/Units 20:45 04:54 04:54 WBC 4.9 (4.0-11.0) th/mm3 RBC 3.50 L (4.00-5.30) mil/mm3 Hgb 10.6 L (11.6-15.3) gm/dL Hct 32.5 L (35.0-46.0) % MCV 92.9 (80.0-100.0) fL MCH 30.2 (27.0-34.0) pg MCHC 32.5 (32.0-36.0) % RDW 14.7 (11.6-17.2) % Plt Count 231 (150-450) th/mm3 MPV 7.7 (7.0-11.0) fL Neut % (Auto) 59.8 (16.0-70.0) % Lymph % (Auto) 23.9 (9.0-44.0) % [place] % (Auto) 10.7 H (0.0-8.0) % Eos % (Auto) 4.6 H (0.0-4.0) % Baso % (Auto) 1.0 (0.0-2.0) % Neut # (Auto) 2.9 (1.8-7.7) th/mm3 Lymph # (Auto) 1.2 (1.0-4.8) th/mm3 [place] # (Auto) 0.5 (0.0-0.9) th/mm3 Eos # (Auto) 0.2 (0.0-0.4) th/mm3 Baso # (Auto) 0.0 (0.0-0.2) th/mm3 WBC Differential . Differential Comment Auto diff final PT (9.8-11.6) sec INR Ratio Sodium 139 141 (136-145) meq/L Potassium 3.6 3.8 (3.5-5.1) meq/L Chloride 106 110 H (98-107) meq/L Carbon Dioxide 29.5 24.9 (21.0-32.0) meq/L Anion Gap 4 L 6 (5-15) meq/L BUN 12 9 (7-18) mg/dL Creatinine 0.59 0.48 L (0.50-1.00) mg/dL Estimated GFR Greater than 89 Greater than 89 (>89) mL/min Random Glucose 95 87 (74-106) mg/dL Calcium 8.8 8.0 L D (8.5-10.1) mg/dL Total Bilirubin 0.6 (0.2-1.0) mg/dL AST 18 (15-37) U/L ALT 19 (10-53) U/L Alkaline Phosphatase 180 H (45-117) U/L Total Protein 8.0 (6.4-8.2) g/dL Albumin 3.7 (3.4-5.0) g/dL Urine Color (Yellw/Straw) Urine Clarity (Clear) Urine pH (5.0-8.5) Ur Specific [place] (1.002-1.035) Urine Protein (Neg-Trace) mg/dL Urine Glucose (UA) (Negative) mg/dL Urine Ketones (Negative) mg/dL Urine Occult Blood (Negative) Urine Nitrate (Negative) Urine Bilirubin (Negative) Urine Urobilinogen (Less than 2) mg/dL Ur Leukocyte Esterase (Negative) Urine WBC (0-5) /hpf Hyaline Casts (0-3) /lpf Micro UA Comment Ur Microscopic Review Urine Culture Comments Blood Type Blood Type Recheck Antibody Screen 12/01/18 12/02/18 12/03/18 Range/Units 14:18 05:16 05:48 WBC 7.3 (4.0-11.0) th/mm3 RBC 3.01 L (4.00-5.30) mil/mm3 Hgb 9.2 L 9.3 L (11.6-15.3) gm/dL Hct 27.9 L 28.6 L (35.0-46.0) % MCV 95.0 (80.0-100.0) fL MCH 31.0 (27.0-34.0) pg MCHC 32.6 (32.0-36.0) % RDW 14.4 (11.6-17.2) % Plt Count 262 (150-450) th/mm3 MPV 7.3 (7.0-11.0) fL Neut % (Auto) 74.7 H (16.0-70.0) % Lymph % (Auto) 14.9 (9.0-44.0) % [place] % (Auto) 6.7 (0.0-8.0) % Eos % (Auto) 3.0 (0.0-4.0) % Baso % (Auto) 0.7 (0.0-2.0) % Neut # (Auto) 5.4 (1.8-7.7) th/mm3 Lymph # (Auto) 1.1 (1.0-4.8) th/mm3 [place] # (Auto) 0.5 (0.0-0.9) th/mm3 Eos # (Auto) 0.2 (0.0-0.4) th/mm3 Baso # (Auto) 0.1 (0.0-0.2) th/mm3 WBC Differential . Differential Comment Auto diff final PT (9.8-11.6) sec INR Ratio Sodium (136-145) meq/L Potassium (3.5-5.1) meq/L Chloride (98-107) meq/L Carbon Dioxide (21.0-32.0) meq/L Anion Gap (5-15) meq/L BUN (7-18) mg/dL Creatinine (0.50-1.00) mg/dL Estimated GFR (>89) mL/min Random Glucose (74-106) mg/dL Calcium (8.5-10.1) mg/dL Total Bilirubin (0.2-1.0) mg/dL AST (15-37) U/L ALT (10-53) U/L Alkaline Phosphatase (45-117) U/L Total Protein (6.4-8.2) g/dL Albumin (3.4-5.0) g/dL Urine Color (Yellw/Straw) Urine Clarity (Clear) Urine pH (5.0-8.5) Ur Specific [place] (1.002-1.035) Urine Protein (Neg-Trace) mg/dL Urine Glucose (UA) (Negative) mg/dL Urine Ketones (Negative) mg/dL Urine Occult Blood (Negative) Urine Nitrate (Negative) Urine Bilirubin (Negative) Urine Urobilinogen (Less than 2) mg/dL Ur Leukocyte Esterase (Negative) Urine WBC (0-5) /hpf Hyaline Casts (0-3) /lpf Micro UA Comment Ur Microscopic Review Urine Culture Comments Blood Type O Positive Blood Type Recheck Required Antibody Screen Negative Imaging Data Radiologist's impression: Chest X-Ray 11/30/18 20:14 CONCLUSION: No acute cardiopulmonary process. Hip CT 11/30/18 20:21 CONCLUSION: Intertrochanteric right femoral neck fracture. There is a pre-existing drake seen in the right femoral shaft. Head CT 11/30/18 20:22 CONCLUSION: No intracranial abnormality is seen. . . Hip X-Ray 12/01/18 00:00 CONCLUSION: Fluoroscopic images during placement of compression screw in the right hip. 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 ECG Data Attestation: I personally reviewed and interpreted this ECG as follows: Interpretation: Twelve-lead EKG was reviewed by me. Normal sinus rhythm, normal axis, nonspecific ST-T wave changes. Heart rate 82 bpm. Discharge Plan Discharge Disposition Patient Disposition: ED Admit(ED Internal Use Only) Discharge Condition Condition: Good Discharge Order Discharge Orders: Discharge Order (Routine); Ordered 12/03/18 Ordered By: Yvan Chin Orthopedic Clear for Discharge (Routine); Ordered 12/03/18 Ordered By: Gil Maradiaga ED Use Only Admit Order (Routine); Ordered 11/30/18 Ordered By: Julius Chavarria Discharge Details Anticipated Discharge Date: 12/03/18 Physicians Team ED Provider: Julius Chavarria Primary Care Provider: Omid Samano Attending Provider: Eusebio Nicholas Other Providers: Chucho Benson ; [facility] Status ED Status: Left Department Discharge Information Discharge Date/Time: 11/30/18 23:41
[2018-11-30 21:13] LABS: Prothrombin Time 10.5 sec (9.8-11.6)
--- NOTE | 2018-11-30 21:23 | CT ---
EXAM DATE: 11/30/2018 9:18 PM EST AGE/SEX: 62 years / Female INDICATIONS: Trauma; fall. Right hip pain. CLINICAL DATA: This is the patient's initial encounter. Patient reports that signs and symptoms have been present for 1 day and indicates a pain score of 10/10. MEDICAL/SURGICAL HISTORY: None. . Right femur surgery. RADIATION DOSE: 22.51 CTDI (mGy) COMPARISON: POI, CT HIP W/O CONTRAST, RIGHT, 11/29/2018. . TECHNIQUE: Multiple contiguous axial images were acquired using a multirow detector CT scanner witho ut contrast. Multiplanar reconstruction was performed in the sagittal and coronal planes. Using aut omated exposure control and adjustment of the mA and/or kV according to patient size, radiation dose was kept as low as reasonably achievable to obtain optimal diagnostic quality images. DICOM format i mage data is available electronically for review and comparison. FINDINGS: Bones: There is an intertrochanteric right femoral neck fracture. The fracture involves portions of the base of the greater trochanter. Intramedullary drake seen in the proximal aspect of the femoral sha ft. Joints: The hip joint is normally aligned. There is fluid in the hip joint. Soft Tissues: There is some soft tissue swelling seen around the fracture. Other: There is an electronic device seen over the right gluteal region. CONCLUSION: Intertrochanteric right femoral neck fracture. There is a pre-existing drake seen in the right femoral shaft. Electronically signed by: Karthikeyan Shook MD Board Certified Radiologist 11/30/2018 9:22 PM EST
[2018-11-30 21:34] LABS: Albumin 3.7 g/dL (3.4-5.0); Anion Gap 4 meq/L (5-15); Aspartate Aminotransferase 18 U/L (15-37); Blood Urea Nitrogen 12 mg/dL (7-18); Calcium 8.8 mg/dL (8.5-10.1); Carbon Dioxide 29.5 meq/L (21.0-32.0); Chloride 106 meq/L (98-107); Glomerular Filtration Rate Greater Than 89 mL/min (>89); Glucose,Random 95 mg/dL (74-106); Potassium 3.6 meq/L (3.5-5.1); Sodium 139 meq/L (136-145)
[2018-11-30 21:35] LABS: Alanine Aminotransferase 19 U/L (10-53)
[2018-11-30 21:38] LABS: Alkaline Phosphatase 180 U/L (45-117)
[2018-11-30] MEDS ORDERED: Acetaminophen 325 MG Tablet PO PRN (21:51)
[2018-11-30 21:56] LABS: Bilirubin,Urine Negative (Negative); Clarity,Urine Clear (Clear); Color,Urine Yellow (Yellw/Straw); Glucose,Urine (UA) Negative (Negative); Hyaline Casts,Urine 1 /lpf (0-3); Leukocyte Esterase,Urine Negative (Negative); Nitrite,Urine Negative (Negative); Specific Gravity,Urine 1.011 (1.002-1.035)
[2018-11-30] MEDS: HYDROmorphone PF Inj 2 MG/ML Vial IV.PUSH PRN (23:55)
[2018-11-30] MEDS: KCL 20 mEq/NACL 0.45% Inj 1,000 ML IV.CONT SCH (23:59)
[2018-12-01] MEDS ORDERED: Chlorhexidine Gluconate 2% 1 Pack (2 Cloths) TOPICAL ONE (04:57)
[2018-12-01] MEDS ORDERED: Sodium Chlor 0.9% Inj 500 ML IV.SIG SCH (05:00)
[2018-12-01 05:28] LABS: Eos # (Auto) 0.2 th/mm3 (0.0-0.4); Eos % (Auto) 4.6 % (0.0-4.0); Hematocrit 32.5 % (35.0-46.0); Hemoglobin 10.6 gm/dL (11.6-15.3); Lymph # (Auto) 1.2 th/mm3 (1.0-4.8); Lymph % (Auto) 23.9 % (9.0-44.0); Mean Corpuscular HGB Conc 32.5 % (32.0-36.0); Mean Corpuscular Hemoglobin 30.2 pg (27.0-34.0); Mean Corpuscular Volume 92.9 fL (80.0-100.0); Mean Platelet Volume 7.7 fL (7.0-11.0); Mono # (Auto) 0.5 th/mm3 (0.0-0.9); Mono % (Auto) 10.7 % (0.0-8.0); Neut # (Auto) 2.9 th/mm3 (1.8-7.7); Neut % (Auto) 59.8 % (16.0-70.0); Platelet Count 231 th/mm3 (150-450); Red Cell Distribution Width 14.7 % (11.6-17.2); White Blood Count 4.9 th/mm3 (4.0-11.0)
[2018-12-01] MEDS: HYDROmorphone PF Inj 2 MG/ML Vial IV.PUSH PRN ×3 (05:38→20:04)
[2018-12-01 07:03] LABS: Anion Gap 6 meq/L (5-15); Blood Urea Nitrogen 9 mg/dL (7-18); Carbon Dioxide 24.9 meq/L (21.0-32.0); Chloride 110 meq/L (98-107); Glomerular Filtration Rate Greater Than 89 mL/min (>89); Glucose,Random 87 mg/dL (74-106); Potassium 3.8 meq/L (3.5-5.1); Sodium 141 meq/L (136-145)
[2018-12-01] MEDS ORDERED: traZODone 100 MG Tablet PO SCH (09:00)
[2018-12-01] MEDS ORDERED: Non-Formulary Drug (Leflunomide [Leflunomide] 20 MG) PO SCH (09:00)
[2018-12-01] MEDS ORDERED: Sertraline 50 MG Tablet PO SCH (09:00)
--- NOTE | 2018-12-01 09:37 | ECG ---
Date Performed: 11/30/2018 Time Performed: 21:39:16 PTAGE: 62 years EKG: Baseline artifact present Sinus rhythm POSSIBLE LEFT ATRIAL ENLARGEMENT BORDERLINE ECG No significant change from prior electrocardiogram. DOCTOR: Robbin Fall Interpretating Date/Time 12/01/2018 09:36:05
[2018-12-01] MEDS: KCL 20 mEq/NACL 0.45% Inj 1,000 ML IV.CONT SCH ×2 (12:00→22:17)
--- NOTE | 2018-12-01 12:48 | P.HPIM ---
History of Present Illness Primary Care Physician: Omid Samano History of Present Illness: 62-year-old female came to the emergency room brought in by EMS for a right hip injury secondary to a fall prior to presentation to [facility]. An outpatient x-ray showing intertrochanteric fracture. Patient has history of MS and wheelchair-bound. She says that she has history of sleepwalking and frequent falls secondary to that. She had a femur fracture in July 2018 that required drake placement after an ORIF by Dr. Bryan. That was secondary to a fall as well. Patient had something similar this morning where she fell and could not get up. Since then she has been having right hip pain. An outpatient x-ray of the hip was obtained that showed intertrochanteric fracture. Patient was asked to go to the emergency room. She lives with her daughter in a house. Currently she is awake and answering questions appropriately. She is asking for pain medication. Patient also has a baclofen and morphine pump for chronic pain secondary to her MS. Vital signs are stable. Patient denies hitting her head when she fell or any LOC. PMH: - implanted pain pump (with baclofen and morphine per patient). Under management of Dr. Cox. - Secondary progressive multiple sclerosis - Pt follows with Dr. Daly -Patient states that in the past she has been wheelchair bound, but she is now able to ambulate short distances -Rheumatoid arthritis -Fibromyalgia -Scoliosis -Restless leg syndrome -Hypersomnolence -Asthma -Coronary artery disease -History of NE (2016) -Patient follows with cardiology, Dr. Anderson. Patient reports that she had a left heart catheterization which showed no blockages PSH: -Right inguinal hernia repair - section x1 -Previous repair of right femur fracture with drake placement -Implanted pain pump FHX: - noncontributory SHX: -Lives with her daughter Marli -Only able to ambulate short distances -Tobacco: Former smoker. Smoked from ages [age]. -Rare alcohol use -No illicit street drugs ALL: latex Inpatient Certification Inpatient Certification: I certify that the inpatient services were ordered in accordance with Medicare regulations governing the order. This includes certification that hospital inpatient services are reasonable and necessary and in the case of services not specified as inpatient-only under 42 CFR 419.22(n), that they are appropriately provided as inpatient services in accordance to with the 2-midnight benchmark under 43 CFR 412.3(e) Estimated Total Length of Stay (Days): 3 Plans for Post Hospital Care: Not yet determined Medications and Allergies Allergies Allergy/AdvReac Type Severity Reaction Status Date / Time latex Allergy Unknown Rash Verified 11/30/18 23:45 Home Medications Medication Instructions Recorded Confirmed Type albuterol sulfate 2.5 mg INHALATION Q6H PRN 11/30/18 11/30/18 History albuterol sulfate [Ventolin HFA] 2 puff INHALATION Q4-6H PRN 11/30/18 11/30/18 History armodafinil [Nuvigil] 250 mg PO QAM 11/30/18 11/30/18 History aspirin [Aspirin Childrens] 81 mg PO DAILY 11/30/18 11/30/18 History atorvastatin 40 mg PO DAILY 11/30/18 11/30/18 History baclofen 10 mg PO BID 11/30/18 11/30/18 History biotin 5 mg PO DAILY 11/30/18 11/30/18 History bumetanide 2 mg PO DAILY 11/30/18 11/30/18 History fluticasone 2 spray INTRANASAL DAILY 11/30/18 11/30/18 History folic acid 1 mg PO DAILY 11/30/18 11/30/18 History leflunomide 20 mg PO DAILY 11/30/18 11/30/18 History methotrexate sodium 50 mg/m2 IM WEEKLY 11/30/18 11/30/18 History metoprolol tartrate 25 mg PO BID 11/30/18 11/30/18 History nitroglycerin 0.4 mg SUBLINGUAL Q5-15M PRN 11/30/18 11/30/18 History omeprazole 20 mg PO DAILY 11/30/18 11/30/18 History oxycodone-acetaminophen 1 tab PO Q4-6H PRN 11/30/18 11/30/18 History prednisone 3 mg PO DAILY 11/30/18 11/30/18 History sertraline 25 mg PO DAILY 11/30/18 11/30/18 History topiramate 25 mg PO DAILY 11/30/18 11/30/18 History trazodone 150 mg PO DAILY 11/30/18 11/30/18 History Active Medications: Active Medications Acetaminophen (Tylenol) 650 mg PO Q4H PRN PRN Reason: Temp > 100.4 Hydrocodone Bitart/Acetaminophen (Rhododendron 5/325) 1 tab PO Q4H PRN PRN Reason: pain 1-5, Al Hydroxide/Mg Hydroxide (Milk Of Ivonne Liq) 30 ml PO Q12H PRN PRN Reason: Mild Constipation Albuterol (Duoneb Neb (Prn)) 1 ampul NEB Q4HR NEB PRN PRN Reason: SHORTNESS OF BREATH/WHEEZING Aspirin (Aspirin Chew) 81 mg PO DAILY [facility] Atorvastatin Calcium (Lipitor) 40 mg PO DAILY [facility] Baclofen (Lioresal) 10 mg PO BID [facility] Folic Acid (Folic Acid) 1 mg PO DAILY [facility] Hydromorphone HCl (Dilaudid Pf Inj) 1 mg IV.PUSH Q4H PRN PRN Reason: pain 6-10, Last Admin: 12/01/18 12:00 Dose: 1 mg Potassium Chloride/Sodium Chloride (Potassium Chlor 20 Meq/Nacl 0.45% Inj) 1, 000 mls @ 84 mls/hr IV.CONT .[id number] BAM Last Admin: 12/01/18 12:00 Dose: 84 mls/hr Lactated Ringer's (Lr 1000 Ml Inj) 1,000 mls @ 30 mls/hr IV.SIG .Q24H BAM Stop: 12/02/18 04:59 Sodium Chloride (Ns Inj) 500 mls @ 30 mls/hr IV.SIG .Q10H [facility] Leflunomide (Arava) 20 mg PO DAILY [facility] Metoprolol Tartrate (Lopressor) 25 mg PO BID [facility] Miscellaneous (Pill Splitter) 0 each OTHER UNSCH PRN PRN Reason: SEE LABEL COMMENTS Nitroglycerin (Nitrostat Sl) 0.4 mg SL Q5M PRN PRN Reason: Chest Pain Ondansetron HCl (Zofran Inj) 4 mg IV.PUSH Q6H PRN PRN Reason: NAUSEA OR VOMITING Pantoprazole Sodium (Protonix) 20 mg PO DAILY [facility] Senna/Docusate Sodium (Karrie-Colace) 1 tab PO BID [facility] Sertraline HCl (Zoloft) 25 mg PO DAILY [facility] Sodium Chloride (Ns Flush) 2 ml IV.FLUSH BID BAM Sodium Chloride (Ns Flush) 2 ml IV.FLUSH PRN PRN PRN Reason: FLUSH AFTER USING IV ACCESS Topiramate (Topamax) 25 mg PO HS [facility] Trazodone HCl (Desyrel) 150 mg PO DAILY [facility] Physical Exam Vital signs: Last Vital Signs Temp 99.0 F 12/01/18 08:00 Pulse 83 12/01/18 08:00 Resp 16 12/01/18 08:00 BP 115/55 L 12/01/18 08:00 Pulse Ox 94 L 12/01/18 08:00 Narrative: GENERAL: This is a well-nourished, well-developed patient, in no apparent distress. CARDIOVASCULAR: Regular rate and rhythm without murmurs, gallops, or rubs. RESPIRATORY: Clear to auscultation. Breath sounds equal bilaterally. No wheezes , rales, or rhonchi. GASTROINTESTINAL: Abdomen soft, non-tender, nondistended. Normal active bowel sounds MUSCULOSKELETAL: Extremities without clubbing, cyanosis, or edema. NEURO: Alert & Oriented x4 to person, place, time, situation. Moves all ext x4 Results Labs CBC & Chem 7: 12/02/18 05:16 12/01/18 04:54 Caprini VTE Risk Assessment Caprini VTE Risk Assessment: Moderate/High Risk (score >= 2) Caprini Risk Assessment Model: Point Value = 1 Point Value = 2 Point Value = 3 Point Value = 5 Age 41-60 Minor surgery BMI > 25 kg/m2 Swollen legs Varicose veins or History of unexplained or recurrent spontaneous Oral contraceptives or hormone replacement Sepsis (< 1 month) Serious lung disease, including pneumonia (< 1 month) Abnormal pulmonary function Acute myocardial infarction Congestive heart failure (< 1 month) History of inflammatory bowel disease Medical patient at bed rest Age 61-74 Arthroscopic surgery Major open surgery (> 45 min) Laparoscopic surgery (> 45 min) Malignancy Confined to bed (> 72 hours) Immobilizing plaster cast Central venous access Age >= 75 History of VTE Family history of VTE Factor V Leiden Prothrombin [id number] Lupus anticoagulant Anticardiolipin antibodies Elevated serum homocysteine Heparin-induced thrombocytopenia Other congenital or acquired thrombophilia Stroke (< 1 month) Elective arthroplasty Hip, pelvis, or leg fracture Acute spinal cord injury (< 1 month) Prophylaxis Regimen: Total Risk Factor Score Risk Level Prophylaxis Regimen 0-1 Low Early ambulation 2 Moderate Order ONE of the following: *Sequential Compression Device (SCD) *Heparin 5000 units SQ BID 3-4 Higher Order ONE of the following medications: *Heparin 5000 units SQ TID *Enoxaparin/Lovenox 40 mg SQ daily (WT < 150 kg, CrCl > 30 mL/min) *Enoxaparin/Lovenox 30 mg SQ daily (WT < 150 kg, CrCl > 10-29 mL/min) *Enoxaparin/Lovenox 30 mg SQ BID (WT < 150 kg, CrCl > 30 mL/min) AND/OR *Sequential Compression Device (SCD) 5 or more Highest Order ONE of the following medications: *Heparin 5000 units SQ TID (Preferred with Epidurals) *Enoxaparin/Lovenox 40 mg SQ daily (WT < 150 kg, CrCl > 30 mL/min) *Enoxaparin/Lovenox 30 mg SQ daily (WT < 150 kg, CrCl > 10-29 mL/min) *Enoxaparin/Lovenox 30 mg SQ BID (WT < 150 kg, CrCl > 30 mL/min) AND *Sequential Compression Device (SCD) Assessment and Plan Attending Attestation 62-year-old female came to the emergency room brought in by EMS for a right hip injury secondary to a fall prior to presentation to [place] [facility]. An outpatient x-ray showing intertrochanteric fracture. Patient has history of MS and wheelchair-bound. She says that she has history of sleepwalking and frequent falls secondary to that. She had a femur fracture in July 2018 that required drake placement after an ORIF by Dr. Bryan. That was secondary to a fall as well. Patient had something similar this morning where she fell and could not get up. Since then she has been having right hip pain. An outpatient x-ray of the hip was obtained that showed intertrochanteric fracture. Patient was asked to go to the emergency room. She lives with her daughter in a house. Currently she is awake and answering questions appropriately. She is asking for pain medication. Patient also has a baclofen and morphine pump for chronic pain secondary to her MS. Vital signs are stable. Patient denies hitting her head when she fell or any LOC. 1) Hip fracture, R - Hip CT (11/30) Intertrochanteric right femoral neck fracture. There is a pre-existing drake seen in the right femoral shaft. - Case d/w Orthopedic Surgeon, Dr. Bronson - Pt will undergo surgical repair - NPO - prn narcotics - PT - supportive care - anticipate pt will need SNF placement 2) Progress Multiple Sclerosis - Pt follows with Dr. [place] outpt - hold nuvigil - implanted pain pump managed by Dr. Cox (baclofen/morphine) - PO baclofen 3) RA - methotrexate weekly - leflunomide 4) hypersomnolence - hold nuvigil 5) CAD - metoprolol, lipitor, ASA 6) peripheral edema - hold bumex H&P: Quality VTE Deep Vein Thrombosis/Pulmonary Embolism Present on Admission: No
--- NOTE | 2018-12-01 13:00 | ECG ---
Date Performed: 12/01/2018 Time Performed: 02:36:40 PTAGE: 62 years EKG: Sinus rhythm Normal ECG No significant change from prior electrocardiogram. DOCTOR: Robbin Fall Interpretating Date/Time 12/01/2018 12:56:38
[2018-12-01] MEDS ORDERED: HYDROmorphone PF Inj 0.5 MG/0.5 ML Syringe IV.PUSH PRN (13:58)
--- NOTE | 2018-12-01 15:11 | P.CONOP ---
[facility] Orthopedics Consult Note - [facility] Consult date: 12/01/18 Chief complaint: Fall, hip fracture Narrative: Maxine is a 62-year-old female that has a history of multiple sclerosis. She uses a wheelchair mostly, but does ambulate short distances. She has a history of sleepwalking. She had a fall in July 2018 resulting in right femur fracture. This was treated with intramedullary drake fixation by Dr. Bryan. She then had a fall approximately 1 week ago resulting in right hip pain. She saw Dr. Bryan who ordered a CT scan. Outpatient CT [facility] 11[facility]2018 revealing a right greater trochanter fracture. She had another fall last night. Repeat CT scan yesterday reveals greater trochanter fracture and intertrochanteric fracture. She does not recall the fall. She states that she fell while sleepwalking. She has severe right hip pain. Pain is worse with movement. Pain is improved with rest. She has baclofen and morphine pump for chronic pain. Review of Systems Patient denies fevers, chills, weight loss, headache, visual changes, hearing loss, chest pain, palpitations, shortness of breath, nausea, vomiting, no urinary changes, diarrhea, bowel changes, neck pain, back pain, skin rashes, easy bleeding, enlarged lymph nodes, numbness of extremities, anxiety, or depression. She complains of severe right hip pain. She has extremity weakness secondary to MS. Patient's social history, past medical history, and family history were reviewed on chart and with patient. [facility] - History History Provided By: Patient - Medical History Medical History: Medical History (Last Updated 12/01/18 @ 15:09 by Chucho Benson MD) Closed right femoral fracture Fibromyalgia Hip fracture, right Multiple sclerosis Rheumatoid arthritis Scoliosis - Family History Family History: Family History (Last Updated 12/01/18 @ 15:08 by Chucho Benson MD) Other Family history non-contributory - Social History I have reviewed the patient's Social History: Yes - Tobacco History Second Hand Smoke Exposure: No Smoking Status: Former smoker - Alcohol History How Often Do You Have a Drink Containing Alcohol: Never - Substance Use History Substance History: No History of Abuse - Travel History Recent Travel in the [place] Within the Last 8 Weeks: No Recent Travel Out of the Country Within the Last 8 Weeks: No - Immunization History Tetanus Immunization: Unsure Hx Influenza Vaccine This Season: Yes Medications and Allergies Active Medications: Active Medications Acetaminophen (Tylenol) 650 mg PO Q4H PRN PRN Reason: Temp > 100.4 Hydrocodone Bitart/Acetaminophen ([place] 5/325) 1 tab PO Q4H PRN PRN Reason: pain 1-5, Al Hydroxide/Mg Hydroxide (Milk Of Magnalejandra Liq) 30 ml PO Q12H PRN PRN Reason: Mild Constipation Albuterol (Duoneb Neb (Prn)) 1 ampul NEB Q4HR NEB PRN PRN Reason: SHORTNESS OF BREATH/WHEEZING Aspirin (Aspirin Chew) 81 mg PO DAILY [facility] Atorvastatin Calcium (Lipitor) 40 mg PO DAILY [facility] Baclofen (Lioresal) 10 mg PO BID [facility] Folic Acid (Folic Acid) 1 mg PO DAILY [facility] Hydromorphone HCl (Dilaudid Pf Inj) 1 mg IV.PUSH Q4H PRN PRN Reason: pain 6-10, Last Admin: 12/01/18 12:00 Dose: 1 mg Hydromorphone HCl (Dilaudid Pf Inj) 0.5 mg IV.PUSH UNSCH X1 PRN PRN Reason: PROCEDURE PAIN Stop: 12/05/18 13:57 Potassium Chloride/Sodium Chloride (Potassium Chlor 20 Meq/Nacl 0.45% Inj) 1, 000 mls @ 84 mls/hr IV.CONT .[id number] [facility] Last Admin: 12/01/18 12:00 Dose: 84 mls/hr Lactated Ringer's (Lr 1000 Ml Inj) 1,000 mls @ 30 mls/hr IV.SIG .Q24H BAM Stop: 12/02/18 04:59 Sodium Chloride (Ns Inj) 500 mls @ 30 mls/hr IV.SIG .Q10H [facility] Leflunomide (Arava) 20 mg PO DAILY [facility] Metoprolol Tartrate (Lopressor) 25 mg PO BID [facility] Miscellaneous (Pill Splitter) 0 each OTHER UNSCH PRN PRN Reason: SEE LABEL COMMENTS Nitroglycerin (Nitrostat Sl) 0.4 mg SL Q5M PRN PRN Reason: Chest Pain Ondansetron HCl (Zofran Inj) 4 mg IV.PUSH Q6H PRN PRN Reason: NAUSEA OR VOMITING Pantoprazole Sodium (Protonix) 20 mg PO DAILY [facility] Senna/Docusate Sodium (Karrie-Colace) 1 tab PO BID ABM Sodium Chloride (Ns Flush) 2 ml IV.FLUSH BID BAM Sodium Chloride (Ns Flush) 2 ml IV.FLUSH PRN PRN PRN Reason: FLUSH AFTER USING IV ACCESS Topiramate (Topamax) 25 mg PO HS BAM Trazodone HCl (Desyrel) 150 mg PO HS BAM Allergies Allergy/AdvReac Type Severity Reaction Status Date / Time latex Allergy Unknown Rash Verified 11/30/18 23:45 Home Medications Medication Instructions Recorded Confirmed Type albuterol sulfate 2.5 mg INHALATION Q6H PRN 11/30/18 11/30/18 History albuterol sulfate [Ventolin HFA] 2 puff INHALATION Q4-6H PRN 11/30/18 11/30/18 History armodafinil [Nuvigil] 250 mg PO QAM 11/30/18 11/30/18 History aspirin [Aspirin Childrens] 81 mg PO DAILY 11/30/18 11/30/18 History atorvastatin 40 mg PO DAILY 11/30/18 11/30/18 History baclofen 10 mg PO BID 11/30/18 11/30/18 History biotin 5 mg PO DAILY 11/30/18 11/30/18 History bumetanide 2 mg PO DAILY 11/30/18 11/30/18 History fluticasone 2 spray INTRANASAL DAILY 11/30/18 11/30/18 History folic acid 1 mg PO DAILY 11/30/18 11/30/18 History leflunomide 20 mg PO DAILY 11/30/18 11/30/18 History methotrexate sodium 50 mg/m2 IM WEEKLY 11/30/18 11/30/18 History metoprolol tartrate 25 mg PO BID 11/30/18 11/30/18 History nitroglycerin 0.4 mg SUBLINGUAL Q5-15M PRN 11/30/18 11/30/18 History omeprazole 20 mg PO DAILY 11/30/18 11/30/18 History oxycodone-acetaminophen 1 tab PO Q4-6H PRN 11/30/18 11/30/18 History prednisone 3 mg PO DAILY 11/30/18 11/30/18 History sertraline 25 mg PO DAILY 11/30/18 11/30/18 History topiramate 25 mg PO DAILY 11/30/18 11/30/18 History trazodone 150 mg PO DAILY 11/30/18 11/30/18 History Exam Vital signs: Vital Signs 11/30/18 19:54 11/30/18 23:28 12/01/18 04:28 Temperature 98.0 F 98.9 F Pulse Rate 76 82 83 Respiratory Rate 14 18 16 Blood Pressure 147/66 H 151/66 H 128/61 Pulse Oximetry 98 94 L 96 12/01/18 08:00 12/01/18 12:00 Temperature 99.0 F 98.3 F Pulse Rate 83 79 Respiratory Rate 16 18 Blood Pressure 115/55 L 119/58 L Pulse Oximetry 94 L 91 L Intake & Output 11/30/18 12/01/18 12/01/18 18:59 06:59 18:59 Intake Total 0 / 0 1000 / 1000 Output Total 1650 / 1650 Balance -1650 / -1650 1000 / 1000 Weight 77.1 kg Intake: IV 1000 / 1000 Potassium Chlor 20 mEq/NACL 0. 1000 / 1000 45% Inj 1,000 ML @ 84 mls/hr IV .CONT .[id number] [facility] Rx#:[id number] Oral 0 / 0 Output: Urine Amount (Catheter) 1650 / 1650 Indwelling Urethral Catheter 1650 / 1650 Other: Date of Last Bowel Movement 11/28/18 # Bowel Movements 0 Weight On Admission 70.307 kg Narrative: Patient is a 62-year-old female. She is mildly anxious. General: Awake and alert. No acute distress. Appears well-developed well- nourished Head: Normocephalic, atraumatic pupils are equal Neck: Soft, nontender, trachea midline Abdomen: Soft, nondistended Examination of right arm reveals no pain or deformity with shoulder, elbow, or wrist motion. Skin is intact. Radial pulse is palpable. Normal capillary refill in fingers. Sensation is intact in radial, ulnar, and median nerve distributions. Clean Room Technician strength is +5. No lymphadenopathy noted. Examination of left arm reveals no pain or deformity with shoulder, elbow, or wrist motion. Skin is intact. Radial pulse is palpable. Normal capillary refill in fingers. Sensation is intact in radial, ulnar, and median nerve distributions. Clean Room Technician strength is +5. No lymphadenopathy noted. Examination of left lower extremity reveals no pain or deformity with hip, knee , or ankle motion. Skin is intact. Dorsalis pedis pulse is palpable. Normal capillary refill and feet. Thigh and calf compartments are soft. No lymphadenopathy noted. Sensation is intact in left foot. Examination of right lower extremity reveals severe pain with any hip motion. She has minimal tenderness around her knee, tibia, or ankle. Skin is intact. Dorsalis pedis pulse is palpable. Normal capillary refill and feet. Thigh and calf compartments are soft. No lymphadenopathy noted. Sensation is intact in right foot. Results - Labs Result Diagrams: 12/02/18 05:16 12/01/18 04:54 Labs: Laboratory Results - last 24 hr 11/30/18 11/30/18 11/30/18 20:30 20:45 20:45 WBC 7.3 RBC 3.88 L Hgb 11.9 Hct 36.2 MCV 93.3 MCH 30.5 MCHC 32.7 RDW 14.8 Plt Count 269 MPV 7.8 Neut % (Auto) 70.3 H Lymph % (Auto) 12.5 [place] % (Auto) 13.1 H Eos % (Auto) 3.0 Baso % (Auto) 1.1 Neut # (Auto) 5.1 Lymph # (Auto) 0.9 L [place] # (Auto) 1.0 H Eos # (Auto) 0.2 Baso # (Auto) 0.1 WBC Differential . Differential Comment Auto diff final PT 10.5 INR 1.0 Sodium Potassium Chloride Carbon Dioxide Anion Gap BUN Creatinine Estimated GFR Random Glucose Calcium Total Bilirubin AST ALT Alkaline Phosphatase Total Protein Albumin Urine Color Yellow Urine Clarity Clear Urine pH 8.0 Ur Specific [place] 1.011 Urine Protein Negative Urine Glucose (UA) Negative Urine Ketones Negative Urine Occult Blood Negative Urine Nitrate Negative Urine Bilirubin Negative Urine Urobilinogen Less than 2 Ur Leukocyte Esterase Negative Urine WBC 1 Hyaline Casts 1 Micro UA Comment Cath-culture not ind Ur Microscopic Review Not Reportable Urine Culture Comments Cath-cult not ind 11/30/18 12/01/18 12/01/18 20:45 04:54 04:54 WBC 4.9 RBC 3.50 L Hgb 10.6 L Hct 32.5 L MCV 92.9 MCH 30.2 MCHC 32.5 RDW 14.7 Plt Count 231 MPV 7.7 Neut % (Auto) 59.8 Lymph % (Auto) 23.9 [place] % (Auto) 10.7 H Eos % (Auto) 4.6 H Baso % (Auto) 1.0 Neut # (Auto) 2.9 Lymph # (Auto) 1.2 [place] # (Auto) 0.5 Eos # (Auto) 0.2 Baso # (Auto) 0.0 WBC Differential . Differential Comment Auto diff final PT INR Sodium 139 141 Potassium 3.6 3.8 Chloride 106 110 H Carbon Dioxide 29.5 24.9 Anion Gap 4 L 6 BUN 12 9 Creatinine 0.59 0.48 L Estimated GFR Greater than 89 Greater than 89 Random Glucose 95 87 Calcium 8.8 8.0 L D Total Bilirubin 0.6 AST 18 ALT 19 Alkaline Phosphatase 180 H Total Protein 8.0 Albumin 3.7 Urine Color Urine Clarity Urine pH Ur Specific [place] Urine Protein Urine Glucose (UA) Urine Ketones Urine Occult Blood Urine Nitrate Urine Bilirubin Urine Urobilinogen Ur Leukocyte Esterase Urine WBC Hyaline Casts Micro UA Comment Ur Microscopic Review Urine Culture Comments - Diagnostic results Imaging: Impressions Chest X-Ray 11/30/18 20:14 CONCLUSION: No acute cardiopulmonary process. Hip CT 11/30/18 20:21 CONCLUSION: Intertrochanteric right femoral neck fracture. There is a pre-existing drake seen in the right femoral shaft. Head CT 11/30/18 20:22 CONCLUSION: No intracranial abnormality is seen. . . Hip CT: report reviewed, image reviewed Assessment and Plan - Assessment and Plan Maxine has had 2 recent falls. Her first fall caused a right hip greater trochanter fracture. The second fall resulted in intertrochanteric fracture. Treatment options were discussed. She has a history of previous surgery for right femur retrograde femoral nail. Patient will need open reduction internal fixation of right proximal femur fracture. Risk of surgery were discussed with patient and her family. All questions were answered. I will plan on surgery today. The risk and benefits of surgery were discussed in depth with patient. The risk of surgery include bleeding, infection, injuries to arteries, nerves, or blood vessels, infection, wound complications, nonunion, malunion, painful hardware, and need for further surgery. I also discussed medical complications including blood clots, pneumonia, stroke, heart attack, and . Informed consent was obtained and all questions were answered. N.p.o.--plan on surgery this morning Calcium and vitamin D supplementation Physical therapy consult--toe-touch weightbearing right leg Follow-up with Dr. Benson in 2 CHARIS Davis Lovenox A mid-level provider in my office (nurse practitioner or physician pharmacist assistant) may see this patient on follow-up visits and continue to implement the objectives of this plan including: Starting or adjusting medications, injections , cast application, orthotics, brace application, physical therapy, radiological studies (including x-ray, MRI, CT, ultrasound, bone scan), vascular studies, neurologic studies, specialist consultation, and proceeding with surgical management, as appropriate.
[2018-12-01] MEDS ORDERED: Neostigmine Inj 5 MG/5 ML Syringe IV.PUSH ONE (15:19)
[2018-12-01] MEDS ORDERED: Lidocaine PF 1% Inj 5 ML Syringe OTHER ONE (15:19)
[2018-12-01] MEDS ORDERED: Glycopyrrolate Inj 1 MG/5 ML Syringe IV.PUSH ONE (15:19)
[2018-12-01] MEDS ORDERED: Sodium Chlor 0.9% Inj 250 ML IV.CONT ONE (15:19)
[2018-12-01] MEDS ORDERED: Post-op Orders (for Pharmacy) OTHER STA (16:33)
--- NOTE | 2018-12-01 16:40 | P.OP ---
- Preoperative Diagnosis (1) Closed intertrochanteric fracture of right femur Date of procedure: 12/01/18 Procedure: Open reduction internal fixation right hip intertrochanteric fracture Anesthesia: GETA Surgeon: Chucho Benson MD Silver Lap Machine Tender: Kenroy Maradiaga PA-C The surgical procedure was assisted by my physician bookkeeping assistant. My P.A. presence was necessary throughout this case for the manipulation and positioning of the surgical extremity. My P.A. was assisting me throughout the duration of this procedure. The skill set of a physician bookkeeping assistant was medically necessary to complete this procedure. During the surgical case the surgical aide was working at the back table and the physician bookkeeping assistant was directly assisting me. Operation and Findings: Implants used: Synthes 135 degree DHS Plan of activity: Toe-touch weightbearing Details of procedure: Patient was seen and evaluated preoperatively. The patient has significant hip pain from intertrochanteric hip fracture. She has intramedullary nail in her right femur secondary to previous femur fracture approximately 6 months ago. The risk and benefits of surgery were discussed in depth with the patient to include bleeding infection nonunion malunion and need for hip replacement painful hardware as well as medical competitions including but not stroke heart attack and . Informed consent was obtained. Operative site was marked. Patient was brought to the operating room and placed on fracture table. IV sedation was administered by anesthesiologist. Timeout procedure was performed. Hip and leg were prepped with alcohol followed by DuraPrep and draped in the usual sterile fashion. IV antibiotics were given prior to incision. Procedure began with reduction of fracture. Traction was applied. The leg was manipulated to achieve reduction. Excellent reduction was achieved. Fluoroscopy was used to confirm reduction. A 5 inch incision was over the lateral aspect of the proximal femur. Subcutaneous tissue was dissected with Bovie. Iliotibial band was split in line with fibers. The vastus lateralis was reflected anteriorly to expose the lateral border of the femur. At this point the 135 degree DHS guide was placed along the lateral femur. The guidepin was placed through the guide into the center of the femoral head. Multiplanar fluoroscopy confirmed well placed pin the. Screw length was now measured. The cannulated drill was now placed over the guidepin. A 95 mm lag screw was now placed up into the femoral head. Fluoroscopy confirmed appropriate lag screw placement. A 3 hole side plate was now placed over the screw. The plate was impacted down to bone. A 4.5 cortical screw was now placed through the plate. This screw lined up with a hole in the intramedullary nail. The screw was bicortical. An additional cable was placed around the proximal femur and plate for additional stability. This cable was tensioned appropriately, clamped, and cut. Final fluoroscopy revealed well aligned fracture with well-placed hardware. Incision was closed with #1 Vicryl , 3-0 Vicryl and ar. Sterile dressings were applied. Patient was awakened and transferred to recovery room.
--- NOTE | 2018-12-01 17:04 | XR ---
EXAM DATE: 12/01/2018 5:01 PM EST AGE/SEX: 62 years / Female INDICATIONS: Surgical repair. CLINICAL DATA: This is the patient's initial encounter. Patient reports that signs and symptoms have been present for 1 day and indicates a pain score of Nonresponsive. MEDICAL/SURGICAL HISTORY: Non-responsive. . Prior surgical repair. COMPARISON: [facility], CT HIP RIGHT W/O CONTRAST, 11/30/2018. . CONCLUSION: Fluoroscopic images during placement of compression screw in the right hip. 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 Electronically signed by: Israel Chen MD Board Certified Radiologist 12/01/2018 5:03 PM EST
[2018-12-01] MEDS ORDERED: fentaNYL Citrate Inj 100 MCG/2 ML Ampul ONE ×2 (17:11→17:12)
--- NOTE | 2018-12-01 17:17 | P.PNOP ---
Subjective Interval history: Transferred to PACU in stable condition Physical Exam Vital signs: Vital Signs 11/30/18 19:54 11/30/18 23:28 12/01/18 04:28 Temperature 98.0 F 98.9 F Pulse Rate 76 82 83 Respiratory Rate 14 18 16 Blood Pressure 147/66 H 151/66 H 128/61 Pulse Oximetry 98 94 L 96 12/01/18 08:00 12/01/18 12:00 Temperature 99.0 F 98.3 F Pulse Rate 83 79 Respiratory Rate 16 18 Blood Pressure 115/55 L 119/58 L Pulse Oximetry 94 L 91 L Intake & Output 11/30/18 12/01/18 12/01/18 18:59 06:59 18:59 Intake Total 0 / 0 1100 / 1100 Output Total 1650 / 1650 Balance -1650 / -1650 1100 / 1100 Weight 77.1 kg Intake: IV 1100 / 1100 Potassium Chlor 20 mEq/NACL 0. 1000 / 1000 45% Inj 1,000 ML @ 84 mls/hr IV .CONT .[id number] [facility] Rx#:[id number] Ancef Inj 2,000 MG In NS Inj 100 / 100 100 ML @ 100 mls/hr IV.SIG ONCE ONE Rx#:[id number] Oral 0 / 0 Output: Urine Amount (Catheter) 1650 / 1650 Indwelling Urethral Catheter 1650 / 1650 Other: Date of Last Bowel Movement 11/28/18 # Bowel Movements 0 Weight On Admission 70.307 kg Narrative: Right lower extremity: Clean dry dressing intact. Abdominal binder in place over incision. Intact distal pulses and good cap refills - Urinary Catheter Management Indwelling Urethral Catheter Cath placed during this visit: yes Reason for continuing: Other continuation reason Insertion date: 11/30/18 Insertion time: 20:30 Results - Labs CBC & Chem 7: 12/01/18 04:54 12/01/18 04:54 Laboratory Results - last 24 hr 11/30/18 11/30/18 11/30/18 20:30 20:45 20:45 WBC 7.3 RBC 3.88 L Hgb 11.9 Hct 36.2 MCV 93.3 MCH 30.5 MCHC 32.7 RDW 14.8 Plt Count 269 MPV 7.8 Neut % (Auto) 70.3 H Lymph % (Auto) 12.5 [place] % (Auto) 13.1 H Eos % (Auto) 3.0 Baso % (Auto) 1.1 Neut # (Auto) 5.1 Lymph # (Auto) 0.9 L [place] # (Auto) 1.0 H Eos # (Auto) 0.2 Baso # (Auto) 0.1 WBC Differential . Differential Comment Auto diff final PT 10.5 INR 1.0 Sodium Potassium Chloride Carbon Dioxide Anion Gap BUN Creatinine Estimated GFR Random Glucose Calcium Total Bilirubin AST ALT Alkaline Phosphatase Total Protein Albumin Urine Color Yellow Urine Clarity Clear Urine pH 8.0 Ur Specific [place] 1.011 Urine Protein Negative Urine Glucose (UA) Negative Urine Ketones Negative Urine Occult Blood Negative Urine Nitrate Negative Urine Bilirubin Negative Urine Urobilinogen Less than 2 Ur Leukocyte Esterase Negative Urine WBC 1 Hyaline Casts 1 Micro UA Comment Cath-culture not ind Ur Microscopic Review Not Reportable Urine Culture Comments Cath-cult not ind Blood Type Blood Type Recheck Antibody Screen 11/30/18 12/01/18 12/01/18 20:45 04:54 04:54 WBC 4.9 RBC 3.50 L Hgb 10.6 L Hct 32.5 L MCV 92.9 MCH 30.2 MCHC 32.5 RDW 14.7 Plt Count 231 MPV 7.7 Neut % (Auto) 59.8 Lymph % (Auto) 23.9 [place] % (Auto) 10.7 H Eos % (Auto) 4.6 H Baso % (Auto) 1.0 Neut # (Auto) 2.9 Lymph # (Auto) 1.2 [place] # (Auto) 0.5 Eos # (Auto) 0.2 Baso # (Auto) 0.0 WBC Differential . Differential Comment Auto diff final PT INR Sodium 139 141 Potassium 3.6 3.8 Chloride 106 110 H Carbon Dioxide 29.5 24.9 Anion Gap 4 L 6 BUN 12 9 Creatinine 0.59 0.48 L Estimated GFR Greater than 89 Greater than 89 Random Glucose 95 87 Calcium 8.8 8.0 L D Total Bilirubin 0.6 AST 18 ALT 19 Alkaline Phosphatase 180 H Total Protein 8.0 Albumin 3.7 Urine Color Urine Clarity Urine pH Ur Specific [place] Urine Protein Urine Glucose (UA) Urine Ketones Urine Occult Blood Urine Nitrate Urine Bilirubin Urine Urobilinogen Ur Leukocyte Esterase Urine WBC Hyaline Casts Micro UA Comment Ur Microscopic Review Urine Culture Comments Blood Type Blood Type Recheck Antibody Screen 12/01/18 14:18 WBC RBC Hgb Hct MCV MCH MCHC RDW Plt Count MPV Neut % (Auto) Lymph % (Auto) [place] % (Auto) Eos % (Auto) Baso % (Auto) Neut # (Auto) Lymph # (Auto) [place] # (Auto) Eos # (Auto) Baso # (Auto) WBC Differential Differential Comment PT INR Sodium Potassium Chloride Carbon Dioxide Anion Gap BUN Creatinine Estimated GFR Random Glucose Calcium Total Bilirubin AST ALT Alkaline Phosphatase Total Protein Albumin Urine Color Urine Clarity Urine pH Ur Specific [place] Urine Protein Urine Glucose (UA) Urine Ketones Urine Occult Blood Urine Nitrate Urine Bilirubin Urine Urobilinogen Ur Leukocyte Esterase Urine WBC Hyaline Casts Micro UA Comment Ur Microscopic Review Urine Culture Comments Blood Type O Positive Blood Type Recheck Required Antibody Screen Negative - Imaging Impressions Chest X-Ray 11/30/18 20:14 CONCLUSION: No acute cardiopulmonary process. Hip CT 11/30/18 20:21 CONCLUSION: Intertrochanteric right femoral neck fracture. There is a pre-existing drake seen in the right femoral shaft. Head CT 11/30/18 20:22 CONCLUSION: No intracranial abnormality is seen. . . Hip X-Ray 12/01/18 00:00 CONCLUSION: Fluoroscopic images during placement of compression screw in the right hip. 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 Assessment and Plan - Assessment and Plan Right intertrochanteric fracture status post open reduction internal fixation POD #0 Calcium and vitamin D supplementation Physical therapy consult--toe-touch weightbearing right leg with no active leg lifts or quad sets Abdominal binder over incision to help with compression dressing. Daily dressing changes beginning POD 2 with Xeroform and [place] Lovenox Incentive spirometry Follow-up with Dr. Bronson in 2 weeks SCDs, Martha Ortiz
[2018-12-01] MEDS ORDERED: *HYDROmorphone PF Inj 1 MG/ML Ampul PERIprocedural Use ONLY ONE (17:37)
[2018-12-01] MEDS: Folic Acid 1 MG Tablet PO SCH (18:01)
[2018-12-01] MEDS: Metoprolol Tartrate 25 MG Tablet PO SCH ×2 (18:01→21:16)
[2018-12-01] MEDS: Baclofen 10 MG Tablet PO SCH ×2 (18:01→21:16)
[2018-12-01] MEDS: Pantoprazole Sodium 20 MG DR Tablet PO SCH (18:02)
[2018-12-01] MEDS: Senna/Docusate Sodium 8.6/50 MG Tablet PO SCH ×2 (18:02→21:16)
[2018-12-01] MEDS: Calcium/Vitamin D 250/125 MG Tablet PO SCH (18:53)
[2018-12-01] MEDS: Topiramate 25 MG Tablet PO SCH (21:16)
[2018-12-01] MEDS: traZODone 100 MG Tablet PO SCH (21:17)
[2018-12-02] MEDS: KCL 20 mEq/NACL 0.45% Inj 1,000 ML IV.CONT SCH (03:30)
--- NOTE | 2018-12-02 06:40 | P.PNOP ---
Subjective Interval history: POD 1 s/p ORIF right hip fx doing well. pain controlled. has not been out of bed yet Physical Exam Vital signs: Vital Signs 12/01/18 08:00 12/01/18 12:00 12/01/18 17:04 Temperature 99.0 F 98.3 F 97.3 F L Pulse Rate 83 79 73 Respiratory Rate 16 18 16 Blood Pressure 115/55 L 119/58 L 131/59 L Pulse Oximetry 94 L 91 L 95 12/01/18 17:15 12/01/18 17:30 12/01/18 17:43 Temperature Pulse Rate 62 66 Respiratory Rate 13 19 17 Blood Pressure 145/65 H 167/73 H Pulse Oximetry 99 100 12/01/18 17:45 12/01/18 20:00 12/01/18 21:21 Temperature 97.5 F L 97.9 F Pulse Rate 81 84 Respiratory Rate 15 18 Blood Pressure 163/70 H 152/66 H Pulse Oximetry 98 100 100 12/02/18 00:00 12/02/18 04:00 Temperature 99.4 F 99.5 F Pulse Rate 85 78 Respiratory Rate 18 18 Blood Pressure 160/80 H 124/60 Pulse Oximetry 100 95 Intake & Output 12/01/18 12/01/18 12/02/18 06:59 18:59 06:59 Intake Total 0 / 0 1600 / 1600 1120 / 1120 Output Total 1650 / 1650 1850 / 1850 900 / 900 Balance -1650 / -1650 -250 / -250 220 / 220 Weight 77.1 kg 75.7 kg Intake: IV 1100 / 1100 1100 / 1100 Potassium Chlor 20 mEq/NACL 0. 1000 / 1000 1000 / 1000 45% Inj 1,000 ML @ 84 mls/hr IV .CONT .[id number] BAM Rx#:[id number] Ancef Inj 1,000 MG In NS Inj 100 / 100 100 / 100 100 ML @ 200 mls/hr IV.SIG Q8H BAM Rx#:[id number] Oral 0 / 0 20 / 20 Anesthesia Amount 500 / 500 Output: Urine 450 / 450 900 / 900 Estimated Blood Loss 200 / 200 Urine Amount (Catheter) 1650 / 1650 1200 / 1200 Indwelling Urethral Catheter 1650 / 1650 1200 / 1200 Other: Date of Last Bowel Movement 11/28/18 11/28/18 # Bowel Movements 0 0 Weight On Admission 70.307 kg Narrative: RLE: dressing clean and dry. intact. +abdominal binder. nvi - Urinary Catheter Management Indwelling Urethral Catheter Cath placed during this visit: yes Reason for continuing: Acute urinary retention Insertion date: 11/30/18 Insertion time: 20:30 Results - Labs CBC & Chem 7: 12/01/18 04:54 12/01/18 04:54 Laboratory Results - last 24 hr 12/01/18 12/01/18 04:54 14:18 Sodium 141 Potassium 3.8 Chloride 110 H Carbon Dioxide 24.9 Anion Gap 6 BUN 9 Creatinine 0.48 L Estimated GFR Greater than 89 Random Glucose 87 Calcium 8.0 L D Blood Type O Positive Blood Type Recheck Required Antibody Screen Negative - Imaging Impressions Hip X-Ray 12/01/18 00:00 CONCLUSION: Fluoroscopic images during placement of compression screw in the right hip. 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 Assessment and Plan - Assessment and Plan 1) Right intertrochanteric fracture status post open reduction internal fixation POD #1 Calcium and vitamin D supplementation Physical therapy consult--toe-touch weightbearing right leg with no active leg lifts or quad sets Abdominal binder over incision to help with compression dressing. Daily dressing changes beginning POD 2 with Xeroform and Primapore D/C abdominal binder on POD 2 Lovenox Incentive spirometry Follow-up with Dr. Bronson in 2 weeks SCDs, Martha Ortiz CM for Rehab placement [id number] Prescription Drug Monitoring Database has been queried and verified prior to prescribing the controlled substance. Acute pain exception. This patient has normal, predicted, physiological, and time limited response to an adverse mechanical stimulus associated with surgery, trauma, or acute illness as described in my notes. There is a lack of alternative treatment options other than to include the prescribed narcotic treatment for this condition.
[2018-12-02 06:45] LABS: Hematocrit 27.9 % (35.0-46.0); Hemoglobin 9.2 gm/dL (11.6-15.3)
[2018-12-02] MEDS: Folic Acid 1 MG Tablet PO SCH (08:32)
[2018-12-02] MEDS: Pantoprazole Sodium 20 MG DR Tablet PO SCH (08:32)
[2018-12-02] MEDS: Baclofen 10 MG Tablet PO SCH ×2 (08:33→20:33)
[2018-12-02] MEDS: Calcium/Vitamin D 250/125 MG Tablet PO SCH ×3 (08:33→17:30)
[2018-12-02] MEDS: Senna/Docusate Sodium 8.6/50 MG Tablet PO SCH ×2 (08:33→20:32)
[2018-12-02] MEDS: Metoprolol Tartrate 25 MG Tablet PO SCH ×2 (08:33→20:33)
--- NOTE | 2018-12-02 11:37 | P.PNIM ---
Subjective Interval history: No new complaints. Physical Exam Vital signs: Last Vital Signs Temp 98.3 F 12/02/18 08:03 Pulse 78 12/02/18 08:03 Resp 18 12/02/18 08:03 BP 120/58 L 12/02/18 08:03 Pulse Ox 92 L 12/02/18 08:03 Narrative: GENERAL: This is a well-nourished, well-developed patient, in no apparent distress. CARDIOVASCULAR: Regular rate and rhythm without murmurs, gallops, or rubs. RESPIRATORY: Clear to auscultation. Breath sounds equal bilaterally. No wheezes , rales, or rhonchi. GASTROINTESTINAL: Abdomen soft, non-tender, nondistended. Normal active bowel sounds MUSCULOSKELETAL: Extremities without clubbing, cyanosis, or edema. NEURO: Alert & Oriented x4 to person, place, time, situation. Moves all ext x4 Results Labs CBC & Chem 7: 12/02/18 05:16 12/01/18 04:54 Assessment and Plan Assessment (1) Closed intertrochanteric fracture of right femur: Code(s): S72.141A - Displaced intertrochanteric fracture of right femur, initial encounter for closed fracture Status: Acute Plan 62-year-old female came to the emergency room brought in by EMS for a right hip injury secondary to a fall prior to presentation to [place] [facility]. An outpatient x-ray showing intertrochanteric fracture. Patient has history of MS and wheelchair-bound. She says that she has history of sleepwalking and frequent falls secondary to that. She had a femur fracture in July 2018 that required drake placement after an ORIF by Dr. Bryan. That was secondary to a fall as well. Patient had something similar this morning where she fell and could not get up. Since then she has been having right hip pain. An outpatient x-ray of the hip was obtained that showed intertrochanteric fracture. Patient was asked to go to the emergency room. She lives with her daughter in a house. Currently she is awake and answering questions appropriately. She is asking for pain medication. Patient also has a baclofen and morphine pump for chronic pain secondary to her MS. Vital signs are stable. Patient denies hitting her head when she fell or any LOC. 1) Hip fracture, R - Hip CT (11/30) Intertrochanteric right femoral neck fracture. There is a pre-existing drake seen in the right femoral shaft. - Case d/w Orthopedic Surgeon, Dr. Bronson (12/01) - ORIF, right hip, Pin. - prn narcotics - lovenox - PT - supportive care - anticipate d/c to SNF 12/03/18 2) Progress Multiple Sclerosis - Pt follows with Dr. Houston outpt - hold nuvigil - implanted pain pump managed by Dr. Cox (baclofen/morphine) - PO baclofen 3) RA - methotrexate weekly - leflunomide 4) hypersomnolence - hold nuvigil 5) CAD - metoprolol, lipitor, ASA 6) peripheral edema - stop bumex Progress Note: Quality VTE Deep Vein Thrombosis/Pulmonary Embolism Present on Admission: No
[2018-12-02] MEDS ORDERED: Enoxaparin Inj 30 MG/0.3 ML Syringe SQ SCH (17:00)
[2018-12-02] MEDS: Topiramate 25 MG Tablet PO SCH (20:33)
[2018-12-02] MEDS ORDERED: Bisacodyl 10 MG Supp RECTAL ONE (20:45)
[2018-12-02] MEDS: traZODone 100 MG Tablet PO SCH (20:59)
[2018-12-03 06:01] LABS: Baso # (Auto) 0.1 th/mm3 (0.0-0.2); Baso % (Auto) 0.7 % (0.0-2.0); Eos # (Auto) 0.2 th/mm3 (0.0-0.4); Hematocrit 28.6 % (35.0-46.0); Hemoglobin 9.3 gm/dL (11.6-15.3); Lymph # (Auto) 1.1 th/mm3 (1.0-4.8); Lymph % (Auto) 14.9 % (9.0-44.0); Mean Corpuscular HGB Conc 32.6 % (32.0-36.0); Mean Platelet Volume 7.3 fL (7.0-11.0); Mono # (Auto) 0.5 th/mm3 (0.0-0.9); Mono % (Auto) 6.7 % (0.0-8.0); Neut # (Auto) 5.4 th/mm3 (1.8-7.7); Neut % (Auto) 74.7 % (16.0-70.0); Platelet Count 262 th/mm3 (150-450); Red Blood Count 3.01 mil/mm3 (4.00-5.30); Red Cell Distribution Width 14.4 % (11.6-17.2); White Blood Count 7.3 th/mm3 (4.0-11.0)
[2018-12-03] MEDS ORDERED: Bisacodyl 10 MG Supp RECTAL SCH (09:00)
[2018-12-03 09:18] VITALS: TEMP 97.7
--- NOTE | 2018-12-03 09:59 | P.PNIM ---
Subjective Interval history: pt says she is ready for dc to snf today Physical Exam Vital signs: Last Vital Signs Temp 97.7 F 12/03/18 08:00 Pulse 89 12/03/18 08:00 Resp 18 12/03/18 08:00 BP 146/66 H 12/03/18 08:00 Pulse Ox 93 L 12/03/18 08:00 Narrative: GENERAL: This is a well-nourished, well-developed patient, in no apparent distress. CARDIOVASCULAR: Regular rate and rhythm without murmurs, gallops, or rubs. RESPIRATORY: Clear to auscultation. Breath sounds equal bilaterally. No wheezes , rales, or rhonchi. GASTROINTESTINAL: Abdomen soft, non-tender, nondistended. Normal active bowel sounds MUSCULOSKELETAL: Extremities without clubbing, cyanosis, or edema. NEURO: Alert & Oriented x4 to person, place, time, situation. Moves all ext x4 Results Labs CBC & Chem 7: 12/03/18 05:48 12/01/18 04:54 Assessment and Plan Assessment (1) Closed intertrochanteric fracture of right femur: Code(s): S72.141A - Displaced intertrochanteric fracture of right femur, initial encounter for closed fracture Status: Acute Plan 62-year-old female came to the emergency room brought in by EMS for a right hip injury secondary to a fall prior to presentation to [place] [facility]. An outpatient x-ray showing intertrochanteric fracture. Patient has history of MS and wheelchair-bound. She says that she has history of sleepwalking and frequent falls secondary to that. She had a femur fracture in July 2018 that required drake placement after an ORIF by Dr. Bryan. That was secondary to a fall as well. Patient had something similar this morning where she fell and could not get up. Since then she has been having right hip pain. An outpatient x-ray of the hip was obtained that showed intertrochanteric fracture. Patient was asked to go to the emergency room. She lives with her daughter in a house. Currently she is awake and answering questions appropriately. She is asking for pain medication. Patient also has a baclofen and morphine pump for chronic pain secondary to her MS. Vital signs are stable. Patient denies hitting her head when she fell or any LOC. 1) Hip fracture, R - Hip CT (11/30) Intertrochanteric right femoral neck fracture. There is a pre-existing drake seen in the right femoral shaft. - Case d/w Orthopedic Surgeon, Dr. Bronson (12/01) - ORIF, right hip, Pin. - prn narcotics - lovenox - PT - supportive care - anticipate d/c to SNF today 2) Progress Multiple Sclerosis - Pt follows with Dr. Houston outpt - hold nuvigil - implanted pain pump managed by Dr. Cox (baclofen/morphine) - PO baclofen 3) RA - methotrexate weekly - leflunomide 4) hypersomnolence - hold nuvigil 5) CAD - metoprolol, lipitor, ASA Progress Note: Quality VTE Deep Vein Thrombosis/Pulmonary Embolism Present on Admission: No
[2018-12-03] MEDS: Metoprolol Tartrate 25 MG Tablet PO SCH (10:10)
[2018-12-03] MEDS: Pantoprazole Sodium 20 MG DR Tablet PO SCH (10:10)
[2018-12-03] MEDS: Calcium/Vitamin D 250/125 MG Tablet PO SCH ×2 (10:10→13:28)
[2018-12-03] MEDS: Folic Acid 1 MG Tablet PO SCH (10:10)
[2018-12-03] MEDS: Senna/Docusate Sodium 8.6/50 MG Tablet PO SCH (10:13)
[2018-12-03] MEDS: Baclofen 10 MG Tablet PO SCH (10:13)
--- NOTE | 2018-12-03 10:45 | P.PNOP ---
Subjective Interval history: Progressing well with physical therapy. No new complaints Physical Exam Vital signs: Vital Signs 12/02/18 11:53 12/02/18 16:09 12/02/18 19:50 Temperature 98.0 F 97.6 F 97.8 F Pulse Rate 69 88 86 Respiratory Rate 18 18 18 Blood Pressure 117/57 L 120/57 L 128/60 Pulse Oximetry 94 L 95 97 12/02/18 23:55 12/03/18 08:00 Temperature 99.6 F 97.7 F Pulse Rate 85 89 Respiratory Rate 18 18 Blood Pressure 138/64 146/66 H Pulse Oximetry 95 93 L Intake & Output 12/02/18 12/03/18 12/03/18 18:59 06:59 18:59 Intake Total 120 / 120 Balance 120 / 120 Weight 75.1 kg Intake: Oral 120 / 120 Other: # Voids 3 Date of Last Bowel Movement 11/28/18 12/03/18 # Bowel Movements 3 Narrative: Right lower extremity: Incision clean dry and intact. Dressing placed upon it. Mild swelling. No drainage. No pain with knee or ankle range of motion. Distally intact sensation with good capillary refills - Urinary Catheter Management Indwelling Urethral Catheter Cath placed during this visit: yes, but has since been removed by the nurse Reason for continuing: Decision to DC catheter Insertion date: 11/30/18 Insertion time: 20:30 Removal date: 12/02/18 Removal time: 17:45 Results - Labs CBC & Chem 7: 12/03/18 05:48 12/01/18 04:54 Laboratory Results - last 24 hr 12/03/18 05:48 WBC 7.3 RBC 3.01 L Hgb 9.3 L Hct 28.6 L MCV 95.0 MCH 31.0 MCHC 32.6 RDW 14.4 Plt Count 262 MPV 7.3 Neut % (Auto) 74.7 H Lymph % (Auto) 14.9 [place] % (Auto) 6.7 Eos % (Auto) 3.0 Baso % (Auto) 0.7 Neut # (Auto) 5.4 Lymph # (Auto) 1.1 [place] # (Auto) 0.5 Eos # (Auto) 0.2 Baso # (Auto) 0.1 WBC Differential . Differential Comment Auto diff final Assessment and Plan - Assessment and Plan Right intertrochanteric femur fracture status post open reduction internal fixation POD 2 Toe-touch weightbearing right lower extremity Daily dressing changes with Xeroform and Primapore Lovenox then Xarelto at discharge Incentive spirometry Case management for rehab placement Discharge to rehab when bed available from orthopedic standpoint Follow-up with Dr. Bronson or [place] in 2 weeks
[2018-12-03 15:24] VITALS: BP 140/63; PULSE 78; RESP 17; O2SAT 95
== END 2018-12-03 06:00 | DRG 482 ==
LOC: NEPC 19:35 → NEDA 22:03 → N06 23:20
PROVIDERS: ADMIT Hospitalist; ATTEND Hospitalist
PROC: ORIFHIP (2018-12-01 15:19)
CPT/HCPCS: 70450; 71010; 71045; 73502; 73700; 76000; 80048; 80053; 81001; 85014; 85018; 85025; 85610; 86850; 86900; 86901; 90774; 90775; 90784; 93005; 94150; 96374; 96375; 97110; 97116; 97162; 99285; C1713; C1776; C8952; J0690; J1170; J1580; J1650; J2250; J2270; J2405; J2704; J2710; J3010; J3370; J3480; J7040; J7050; P9612